=== PATIENT | male | born 1990 | race Caucasian/White ===

== ENCOUNTER 2020-06-19 17:02 | Outpatient (REF) | payer OTHER, MEDICAID, SELFPAY | END 2020-06-19 17:03 | disposition home or self-care (01) | LOC: HO.LAB 17:02 | PROVIDERS: Visit Provider Internal Medicine | DX: Z20.822 Contact with and (suspected) exposure to COVID-19 (principal) | CPT/HCPCS: 36415; C9803; U0003; U0005 ==

== ENCOUNTER 2020-12-05 11:53 | Emergency (ER) | payer MEDICAID, SELFPAY ==
[2020-12-05 12:15] VITALS: BP 121/75; PULSE 71; RESP 16; TEMP 37; O2SAT 97; BMI 41.9
--- NOTE | 2020-12-05 12:23 | ECG_ITS ---
Test Reason : HEADACHE Blood Pressure : / mmHG Vent. Rate : 069 BPM Atrial Rate : 069 BPM P-R Int : 154 ms QRS Dur : 094 ms QT Int : 384 ms P-R-T Axes : 014 015 -11 degrees QTc Int : 411 ms Normal sinus rhythm Nonspecific ST and T wave abnormality Abnormal ECG When compared to the previous EKG of No significant changes seen Referred By: Thea Cevallos Electronically Signed By:ELISHA SMITH MD
--- NOTE | 2020-12-05 12:24 | ED_ITS ---
HPI - Headache General Chief Complaint: Headache Stated Complaint: Headaches Time Seen by Provider: 12/05/20 12:23 Source: patient Mode of arrival: ambulatory History of Present Illness HPI Narrative: 30-year-old male with a past medical history of hyperlipidemia, sleep apnea presenting to the ED complaining of migraine headache x1 week with associated nausea, pressure under eyes, and lightheadedness. Admits symptoms worsen today. Also reports paresthesia feeling beneath eyes x today. Denies fever, chills, ear pain, sore throat, visual change/loss, CP/SOB, numbness, weakness, abdominal pain, recent travel MD elicited complaint: headache Related Data Previous Rx's Medication Instructions Recorded albuterol sulfate 90 mcg/actuation 2 puff INHALATION Q4-6H PRN #8.5 g 09/17/20 aerosol inhaler atorvastatin 20 mg tablet 20 mg PO DAILY #90 tab 09/17/20 prednisone 50 mg tablet 50 mg PO DAILY 5 Days #5 tab 10/18/20 tizanidine 2 mg tablet 2 mg PO BEDTIME PRN 10 Days #10 tab 10/18/20 acetaminophen [Tylenol Extra 500 mg PO Q6H PRN #20 tab 12/05/20 Strength] amoxicillin-pot clavulanate 1 tab PO Q12H 7 Days #14 tab 12/05/20 [Augmentin] ibuprofen 600 mg PO Q8H PRN #14 tab 12/05/20 Allergies Allergy/AdvReac Type Severity Reaction Status Date / Time No Known Allergies Allergy Verified 12/05/20 12:22 Review of Systems Review of Systems: Constitutional: No Fever, No Chills, No Fatigue, No Malaise ENT/Mouth: No Ear Pain, + Nasal Congestion, + Sinus Pain, No Hoarseness, No sore throat, No Rhinorrhea, No Swallowing Difficulty Eyes: No Eye Pain, No Vision Changes Cardiovascular: No Chest Pain, No SOB Respiratory: No Cough, No Dyspnea Gastrointestinal: + Nausea, No Vomiting, No Diarrhea, No Constipation, No Abdominal pain Musculoskeletal: No joint pain, No Myalgias, No Joint Swelling Skin: No Skin Lesions, No rash Neuro: No Weakness, No Numbness, + Paresthesias, No Loss of Consciousness, No Dizziness, +Lightheadedness, + Headache Yes all other systems are reviewed and are negative Neurologic: Denies Abnormal speech present [facility] Past Medical History Attestation statement: The following information was validated with the patient. Medical History (Updated 12/05/20 @ 15:39 by AZUCENA Goodson) Hyperlipidemia Sleep apnea Surgical History No pertinent past surgical history Family History Family History Father Stroke Myocardial infarction Hemiplegia Mother Arthritis Son In good health Son In good health Sister In good health Family/Other Diabetes Social History Social History Alcohol intake: never Patient Tobacco Use Status: Never used Tobacco Use of substances other than those prescribed or required for medical reasons: No Advance Directives: No Advance Directives Information Provided: Yes Physical Exam Vital Signs: Vital Signs: Last Vital Signs Temp 98.6 F 12/05/20 12:15 Pulse 63 12/05/20 14:39 Resp 18 12/05/20 14:39 BP 108/62 12/05/20 14:39 Pulse Ox 97 12/05/20 14:39 Body Mass Index 41.9 Const: General: cooperative, healthy appearing, no acute distress, well developed, alert and awake Orientation/consciousness: patient oriented x3 Limitations: no limitations HENMT: Other: Sensation intact to light touch. Nasal congestion noted on exam Head: Yes normal to inspection and Yes atraumatic Ears: hearing grossly normal bilaterally, external ears normal and TM's normal bilaterally General nose exam: Normal external nose present Face and sinus: Yes normal facial exam and Yes sinus tenderness (maxillary) Mouth: Normal oral and palatal mucosa present Throat: Yes posterior oropharynx normal, Yes tonsils normal, Yes uvula midline, No uvula laterally displaced and No uvular edema Eyes: General: appearance normal, both eyes and all related structures EOM: EOMs intact bilaterally Neck: Neck: Yes normal visual inspection, Yes no meningeal signs, Yes trachea midline and Yes supple Resp: Effort & Inspection: normal respiratory effort and no respiratory distress Cardio: Rate: regular rate GI: Inspection: Yes normal to inspection Palpation (GI): Soft to palpation, nontender, no guarding and not rigid Skin: Rashes: no rashes Wounds: no wounds Neuro: General: patient oriented x3, gait normal, tone normal, moves all extremities, no meningeal signs, no focal motor deficits and CN's II-XI intact bilaterally Cognition (Neuro): normal cognition Speech: No Abnormal speech present Gait exam (Neuro): Normal gait present Motor exam (neuro): 5/5 motor strength present throughout and Pronator motor function not present Coordination: [id number] test normal Romberg Test: Negative Extrem: General: Yes normal to inspection and Yes no pedal edema Course Course Course Narrative: This is a rapid medical evaluation in triage. This a 30-year- old male complaining migraine headache, nausea, sinus pressure, and lightheadedness x1 week. Admits to taking Tylenol today without relief, symptoms worsen today. Denies vision change/loss, CP/SOB Labs, IVF, Toradol/Reglan/Benadryl ordered in triage Full medical history/physical exam and evaluation will be performed by ED provider -[id number]--no leukocytosis, H&H stable, last otherwise unremarkable, patient reports symptomatic improvement after remedies given in the ED. -orthostatic vital signs negative Worrisome signs and symptoms and strict return precautions discussed with patient including recommended follow-up with PCP, he verbalized understanding feel safe for discharge home MDM - Headache MDM Narrative Medical decision making narrative: 30-year-old male with a past medical history of hyperlipidemia, sleep apnea presenting to the ED complaining of migraine headache x1 week with associated nausea, pressure under eyes, and lightheadedness. Also reports paresthesia feeling beneath eyes x today. On exam vital signs stable, NAD/well-appearing, physical exam as above, no focal neuro deficits. Nasal congestion noted on exam with mild sinus tenderness to palpation. Concern for sinusitis vs migraine headache vs dehydration. Low concern for meningitis/encephalitis or BPPV or CVA or CVT Plan: EKG, labs IVF, symptomatic treatment, orthostatic vital signs, reassess Medical Records Attestation: I reviewed the patient's medical records. Lab Data Attestation: I reviewed the patient's lab results. Result diagrams: 12/05/20 13:32 12/05/20 13:32 Labs: Lab Results 12/05/20 12/05/20 Range/Units 13:32 13:32 WBC 8.8 (4.8-10.8) X10*3/uL RBC 6.24 H (4.60-5.80) X10*6/uL Hgb 12.4 L (14.0-18.0) g/dl Hct 40.7 L (42-52) % MCV 65.2 L (80-98) fL MCH 19.9 L (27.0-33.0) pg MCHC 30.5 L (31.0-36.0) g/dl RDW 17.0 H (11.0-16.0) % Plt Count 266 (160-400) X10*3/uL MPV 9.4 (9.4-12.4) fL Immature Gran % (Auto) 0.1 (0.0-0.4) % Neut % (Auto) 63.4 (45-73) % Lymph % (Auto) 25.1 (20-40) % [place] % (Auto) 9.0 (2-11) % Eos % (Auto) 2.2 (0-4) % Baso % (Auto) 0.2 (0-2) % Lymph # (Auto) 2.2 (1.2-4.9) X10*3/uL [place] # (Auto) 0.8 (0.1-1.2) X10*3/uL Eos # (Auto) 0.2 (0.0-0.4) X10*3/uL Baso # (Auto) 0.0 (0.0-0.2) X10*3/uL Abs Immat Gran (auto) 0.01 (0.00-0.03) X10*3/uL Absolute Neuts (auto) 5.6 (2.0-8.3) X10*3/uL Absolute Nucleated RBC 0.000 (0.0-0.012) X10*3/uL Nucleated RBC % (auto) 0.0 (0.0-0.2) /100WBC Sodium 139 (135-145) mmol/L Potassium 4.3 (3.3-5.1) mmol/L Chloride 106 (96-108) mmol/L Carbon Dioxide 24 (22-29) mmol/L Anion Gap 13 (12-20) BUN 12 (9-16) mg/dL Creatinine 0.85 (0.5-1.4) mg/dL Estim Creat Clear Calc 152.1 Estimated GFR > 60 Random Glucose 87 (60-115) mg/dL Calcium 9.2 (8.4-10.2) mg/dL Magnesium 1.8 (1.6-2.6) mg/dL Total Bilirubin 0.5 (0.0-1.0) mg/dL Direct Bilirubin 0.2 (0.0-0.5) mg/dL AST 26 (5-37) U/L ALT 28 (0-40) U/L Alkaline Phosphatase 64 (39-117) U/L Total Protein 7.9 (6.5-8.0) g/dL Albumin 4.0 (3.5-5.0) g/dL ECG Data Attestation: I personally reviewed and interpreted this ECG as follows: ECG interpretation date: 12/05/20 ECG interpretation time: 12:46 Interpretation: EKG normal sinus rhythm with a rate of 69. Nonischemic/NSTEMI Discharge Plan Discharge Clinical Impression: Headache, Sinusitis Patient Disposition: Home, Self-Care Instructions: Sinusitis (ED), Acute Headache (ED) Additional Instructions: Your blood work was reassuring today in the ED You likely have sinusitis, Augmentin is an antibiotic, take as prescribed In addition for your headaches take Tylenol and ibuprofen Please follow-up with her primary care doctor If her symptoms persist or worsen, become unbearable, you develop fever, please return to the ED Prescriptions: New acetaminophen [Tylenol Extra Strength] 500 mg tablet 500 mg PO Q6H PRN (Reason: pain or fever) Qty: 20 RF: 0 amoxicillin-pot clavulanate [Augmentin] 875-125 mg tablet 1 tab PO Q12H 7 Days Qty: 14 RF: 0 ibuprofen 600 mg tablet 600 mg PO Q8H PRN (Reason: fever or pain) Qty: 14 RF: 0 No Action albuterol sulfate [ProAir HFA] 90 mcg/actuation HFA aerosol inhaler 2 puff inhalation Q4-6H PRN (Reason: bronchospasm) Qty: 8.5 RF: 8 atorvastatin 20 mg tablet 20 mg PO DAILY Qty: 90 RF: 8 tizanidine 2 mg tablet 2 mg PO BEDTIME PRN (Reason: muscle spasticity) 10 Days Qty: 10 RF: 0 prednisone 50 mg tablet 50 mg PO DAILY 5 Days Qty: 5 RF: 0 Referrals: Alfredo Devine MD [Primary Care Provider] - 2 days
[2020-12-05 13:17] VITALS: BP 108/61; BP 122/72; PULSE 59; PULSE 71
[2020-12-05 13:19] VITALS: BP 122/72; PULSE 68; RESP 18; O2SAT 98
[2020-12-05 13:20] VITALS: BP 129/62; PULSE 74
[2020-12-05] MEDS: Ketorolac Tromethamine 15 MG/ML VIAL IVPUSH (13:39)
[2020-12-05] MEDS: diphenhydrAMINE HCL 50 MG/ML VIAL 12.5 MG IVPUSH (13:39)
[2020-12-05] MEDS: 0.9 % Sodium Chloride 1,000 ML 999 ML IVCONT (13:40)
[2020-12-05] MEDS: Metoclopramide HCl 10 MG/2 ML VIAL IVPUSH (13:40)
[2020-12-05 13:41] LABS: MANUAL DIFF FLAG NO
[2020-12-05 13:42] LABS: Basophils Percent Auto 0.2 % (0-2); Eosinophils Absolute Auto 0.2 X10*3/uL (0.0-0.4); Eosinophils Percent Auto 2.2 % (0-4); Hematocrit 40.7 % (42-52); Hemoglobin 12.4 g/dl (14.0-18.0); Imm Gran Abs Auto 0.01 X10*3/uL (0.00-0.03); Imm Gran Pct Auto 0.1 % (0.0-0.4); Lymphocytes Absolute Auto 2.2 X10*3/uL (1.2-4.9); Lymphocytes Percent Auto 25.1 % (20-40); Mean Corpuscular HGB Conc 30.5 g/dl (31.0-36.0); Mean Corpuscular Hemoglobin 19.9 pg (27.0-33.0); Mean Corpuscular Volume 65.2 fL (80-98); Mean Platelet Volume 9.4 fL (9.4-12.4); Monocytes Absolute Auto 0.8 X10*3/uL (0.1-1.2); Neutrophils Absolute Auto 5.6 X10*3/uL (2.0-8.3); Neutrophils Percent Auto 63.4 % (45-73); Platelet Count 266 X10*3/uL (160-400); Red Blood Count 6.24 X10*6/uL (4.60-5.80); White Blood Count 8.8 X10*3/uL (4.8-10.8)
[2020-12-05 14:37] LABS: Alanine Aminotransferase 28 U/L (0-40); Alkaline Phosphatase 64 U/L (39-117); Anion Gap 13 (12-20); Aspartate Amino Transferase 26 U/L (5-37); Bilirubin Direct 0.2 mg/dL (0.0-0.5); Bilirubin Total 0.5 mg/dL (0.0-1.0); Blood Urea Nitrogen 12 mg/dL (9-16); Calcium 9.2 mg/dL (8.4-10.2); Carbon Dioxide 24 mmol/L (22-29); Chloride 106 mmol/L (96-108); Creatinine Clr Calc Pharmacy 152.1; Estimated Glomerular Filt Rate > 60; Glucose Random 87 mg/dL (60-115); Magnesium 1.8 mg/dL (1.6-2.6); Potassium 4.3 mmol/L (3.3-5.1); Sodium 139 mmol/L (135-145); Total Protein 7.9 g/dL (6.5-8.0)
[2020-12-05 14:39] VITALS: BP 108/62; PULSE 63; RESP 18; O2SAT 97
== END 2020-12-05 15:57 | disposition home or self-care (01) ==
PROVIDERS: Physician Assistant; Emergency Provider Emergency Medicine; PCP Internal Medicine
DX: J32.9 Chronic sinusitis, unspecified (principal)
CPT/HCPCS: 36415; 80048; 80076; 83735; 85025; 93005; 96361; 96374; 96375; 99284; 99285; J1200; J1885; J2765

== ENCOUNTER 2021-06-28 15:04 | Outpatient (REF) | payer MEDICAID, SELFPAY ==
--- NOTE | ~2021-06-28 | CT_ITS ---
EXAMINATION: CT HEAD WITHOUT CONTRAST CLINICAL INFORMATION: Skin paresthesias COMPARISON: None TECHNIQUE: Contiguous axial imaging was performed from the skull base to vertex without intravenous administration of contrast. This CT examination was performed using dose optimization techniques as appropriate, variously including the following: *Automated exposure control *Adjustment of mA and/or kV according to patient size (this includes techniques or standardized protocols for targeted exams where dose is matched to indication/reason for exam; i.e. extremities or head) *Use of iterative reconstruction technique DLP: 881 mGy-cm FINDINGS: There is no evidence of acute intracranial hemorrhage or territorial infarction. No abnormal mass effect or midline shift is seen. Stephenson to white matter differentiation is well preserved. No extra-axial fluid collections are identified. The ventricles are normal in size. There is no abnormal attenuation within the brain parenchyma. The osseous structures and soft tissues are normal. The mastoid air cells and visualized portions of the paranasal sinuses are well aerated. CT/CT head/brain wo con IMPRESSION: Unremarkable exam.
== END 2021-06-28 15:05 | disposition home or self-care (01) ==
LOC: HO.CT 15:04
PROVIDERS: Visit Provider Emergency Medicine
DX: R20.2 Paresthesia of skin (principal)
CPT/HCPCS: 70450

== ENCOUNTER 2021-07-18 09:16 | Outpatient (REF) | payer MEDICAID, SELFPAY ==
--- NOTE | 2021-07-18 | EMG_ITS ---
Bilateral median and ulnar motor and sensory studies were performed. Bilateral radial sensory studies were performed and paraspinal muscles were tested with a needle. IMPRESSION: Mild bilateral median neuropathy across carpal tunnel. MD CAROLYNN Ortiz/SIDDHARTH / [id number]
== END 2021-07-18 09:17 | disposition home or self-care (01) ==
LOC: HO.NEURO 09:16
PROVIDERS: Absent Provider Nurse Practitioner Primary Care; PCP Nurse Practitioner Primary Care; Visit Provider Emergency Medicine
DX: R20.2 Paresthesia of skin (principal)
CPT/HCPCS: 95886; 95911

== ENCOUNTER → 2021-08-20 12:41 | Outpatient (BNVA) | payer MEDICAID, SELFPAY | PROVIDERS: PCP Nurse Practitioner Primary Care; Visit Provider Orthopaedic Surgery | DX: G56.03 Carpal tunnel syndrome, bilateral upper limbs (principal) | CPT/HCPCS: 99202 ==

== ENCOUNTER 2021-09-05 09:52 | Day surgery (SDC) | payer MEDICAID, SELFPAY ==
[2021-09-05 10:28] VITALS: BP 148/80; PULSE 65; RESP 16; TEMP 36.6; O2SAT 97
--- NOTE | 2021-09-05 10:29 | W.PM.OPN ---
Operative Note Operative Note Date of Service: 09/05/21 Narrative: Preop diagnosis: 1. left Carpal tunnel syndrome Postop diagnosis: same Procedure: 1. left Carpal tunnel release Surgeon: Gela Siu MD Anesthesia: local block using 1% lidocaine with epinephrine Findings: Thickened transverse carpal ligament. EBL: Less than 5 mL Specimens: None Complications: None Disposition: Brought to recovery room in stable condition Plan: Follow-up for 10-14 days for wound check and suture removal Indications: The patient is 31 years old, with left carpal tunnel syndrome that has been unresponsive to nonoperative management. The risks and benefits of operative treatment including but not limited to risk of damage to blood vessels, nerves, tendons, infection, persistent pain, persistent symptoms, or possible need for additional surgery were discussed with the patient and the patient wishes to proceed with surgery. Procedure: Once consent was obtained a local block was performed using a combination of 1% lidocaine with epinephrine. The patient was then brought back to the operating suite and placed on the operative table in supine position. A tourniquet was applied to the proximal aspect of the left upper extremity and the limb was prepped and draped in a standard surgical fashion. Once assured that we had a good block, a 1.5 cm longitudinal incision was made centered over the carpal tunnel. The incision was made through the skin to the subcutaneous tissues using a #15 blade. Dissection was made down to the level of the transverse carpal ligament with care being taken to protect the palmar cutaneous nerve. Once the transverse carpal ligament was clearly visualized, a longitudinal incision was made in the transverse carpal ligament 1st using a #15 blade, then using tenotomy scissors under direct visualization. Care was taken to look for and protect the motor branch of the median nerve when seen in this area. Once satisfied with our carpal tunnel release the wound was copiously irrigated with normal saline and hemostasis was obtained with a brief period of local pressure. The skin edges were reapproximated with some 5.0 nylon suture material and a sterile dressing was applied. The patient appears to have tolerated the procedure well and with no complications. All digits were well vascularized at the conclusion of the case.
[2021-09-05 10:30] VITALS: BMI 44.6
--- NOTE | 2021-09-05 13:39 | MHC.SHP ---
Pre-Procedural Eval Section A Date of Service: 09/05/21 The patient is an INPATIENT: No Changes since office visit: No Cold of Flu in the past 2 weeks, No New Medical Problems, No Changes in Medication and No Patient answered all questions The History & Physical has been completed within 30 days and I have reviewed it.: Yes Section B Chief Complaint: carpal tunnel Allergies: Allergies Allergy/AdvReac Type Severity Reaction Status Date / Time No Known Allergies Allergy Verified 09/05/21 10:28 Plan I have reviewed the history and physical and performed a pertinent physical examination on my patient. No changes have occurred unless specified.
[2021-09-05 14:18] VITALS: PULSE 73; RESP 16; TEMP 36.8; O2SAT 99
== END 2021-09-05 15:09 | disposition home or self-care (01) ==
PROVIDERS: PCP Nurse Practitioner Primary Care; Visit Provider Orthopaedic Surgery
PROC: (CPT 64721; principal; 2021-09-05 12:50)
DX: G56.02 Carpal tunnel syndrome, left upper limb (principal); R20.0 Anesthesia of skin; M25.642 Stiffness of left hand, not elsewhere classified; M25.641 Stiffness of right hand, not elsewhere classified; E78.5 Hyperlipidemia, unspecified; G47.30 Sleep apnea, unspecified
CPT/HCPCS: 64721; J0171

== ENCOUNTER → 2021-09-18 12:39 | Outpatient (BNVA) | payer MEDICAID, SELFPAY | PROVIDERS: PCP Nurse Practitioner Primary Care; Visit Provider Orthopaedic Surgery | DX: Z48.811 Encounter for surgical aftercare following surgery on the nervous system (principal); G56.01 Carpal tunnel syndrome, right upper limb | CPT/HCPCS: 99212 ==

== ENCOUNTER 2023-02-04 | Outpatient (REF) | payer MEDICAID, SELFPAY ==
[2023-02-05 15:51] LABS: Influenza A PCR NEGATIVE (Negative); Influenza B PCR NEGATIVE (Negative); Resp Syncy Virus RNA Qual PCR NEGATIVE (Negative); SARS COV2 PCR INHOUSE NEGATIVE (Negative)
== END 2023-02-04 00:01 | disposition home or self-care (01) ==
LOC: HO.HHCLNP
PROVIDERS: Registered Nurse; Visit Provider Emergency Medicine
DX: Z20.822 Contact with and (suspected) exposure to COVID-19 (principal); J01.90 Acute sinusitis, unspecified
CPT/HCPCS: 0241U

== ENCOUNTER 2023-02-10 14:47 | Outpatient (AMB) | payer MEDICAID, SELFPAY ==
--- NOTE | 2023-02-10 15:04 | MHC.OFFVIS ---
Intake Vital Signs 02/10/23 16:04 Height 5 ft 4 in Weight 260 lb BMI 44.6 Intake Visit Reasons: OV- RT CTS Intake Note: Thomas 32 yr old male presents today for his Right hand CTS. States he is ready to have his right hand done. Hx of left hand CTR from 09/05/22. Consent signed and reviewed. Allergies No Known Allergies Allergy (Verified 02/10/23 16:03) HPI OV- RT CTS HPI Details Thomas is a 32 year old right hand dominant man who presents to discuss his right carpal tunnel syndrome. He complains of numbness in the median nerve distribution of his right hand. Symptoms intermittent, but daily, worse at night. He has a hx of Left carpal tunnel release, DOS: 09/05/21. He says his sensation in his left hand is improved and he is happy with this. 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 Normal sensation in the ulnar nerve distribution today in clinic No thenar or intrinsic wasting Good APB muscle belly firing and good finger cross Vascular: Cap refill brisk ROM: He can make a fist and extend all his digits Nerve Conduction Study: IMPRESSION: Mild bilateral median neuropathy across carpal tunnel. Nettie Perez MD 07/18/2021 Psych Appearance: grossly normal Affect: normal affect Attitude: cooperative Assessment & Plan Assessment & Plan (1) Carpal tunnel syndrome of left wrist: Code(s): G56.02 - Carpal tunnel syndrome, left upper limb (2) Carpal tunnel syndrome of right wrist: Code(s): G56.01 - Carpal tunnel syndrome, right upper limb (3) Numbness and tingling in right hand: Code(s): R20.0 - Anesthesia of skin; R20.2 - Paresthesia of skin Plan Assessment and plan: 1. Right carpal tunnel syndrome, mild With numbness in the median nerve distribution today in clinic. I educated him about this condition I discussed operative and non-operative treatment options The patient would like to proceed with surgery The risks and benefits of operative treatment were discussed with the patient and the patient wishes to proceed with surgery. These risks include, but are not limited to risk of damage to blood vessels, nerves, tendons, infection, recurrence, incomplete relief of preoperative symptoms, persistent pain, possible need for further surgery and the risks associated with regional blocks and anesthesia. The plan is to take the patient to the operating room sometime in the next few weeks for the following procedures: 1. Right carpal tunnel release, under local All of the preoperative paperwork including the consent was filled out today. All the patient's questions were answered. The patient understands that they will be contacted by our store receiver soon to schedule this procedure He denies Diabetes, blood thinners, asthma, heart, lung, kidney issues He says he is pre-diabetic but is not on any medication 2. Right hand numbness In the small finger Symptoms intermittent and occasional No evidence of cubital tunnel syndrome on his previous NCS If his symptoms persist or worsen we may consider ordering a new NCS 3. Left carpal tunnel syndrome, mild, S/P release DOS: 09/05/21 With normal sensation postop Scribed for Gela Siu MD by Chester José, medical billing representative, on 02/10/23 at 4:20 PM, EST. Coding Level of Care Code Est Pt Level 4 (66180) Diagnoses Carpal tunnel syndrome of left wrist G56.02 Carpal tunnel syndrome of right wrist G56.01 Numbness and tingling in right hand R20.0; R20.2
[2023-02-10 16:04] VITALS: BMI 44.6
== END 2023-02-10 16:27 | disposition home or self-care (01) ==
PROVIDERS: PCP Nurse Practitioner Primary Care; Visit Provider Orthopaedic Surgery
DX: G56.02 Carpal tunnel syndrome, left upper limb (principal); G56.01 Carpal tunnel syndrome, right upper limb; R20.0 Anesthesia of skin; R20.2 Paresthesia of skin
CPT/HCPCS: 99214

== ENCOUNTER → 2023-02-10 14:47 | Outpatient (BNVA) | payer MEDICAID, SELFPAY | PROVIDERS: PCP Nurse Practitioner Primary Care; Visit Provider Orthopaedic Surgery | DX: G56.01 Carpal tunnel syndrome, right upper limb (principal); R20.0 Anesthesia of skin; R20.2 Paresthesia of skin | CPT/HCPCS: 99212 ==

== ENCOUNTER 2023-04-02 14:30 | Outpatient (AMB) | payer MEDICAID, SELFPAY ==
--- NOTE | 2023-04-02 14:40 | MHC.OFFVIS ---
Intake Vital Signs 04/02/23 14:41 Height 5 ft 4 in Weight 277 lb BMI 47.5 BP 118/74 Blood Pressure Location Rt brachial Position Sitting Intake Visit Reasons: [id number] box full Intake Note: Patient presents for FABIÁN. Patient states I have sleep apnea, I have a machine. Allergies No Known Allergies Allergy (Verified 04/02/23 14:44) HPI HPI Comments History of Present Illness Details 32 y/o male patient presents for new in-person visit to manage sleep apnea. Pt reports he was diagnosed with severe degree of FABIÁN about 7 years ago. The AHI was 150/hr. and have been using the CPAP. His home care company is [employer]. Pt states that his insurance changed and need new prescription for supplies. His CPAP works well now. He reports he feels good, wakes up refreshed when he uses CPAP. Daytimes sleepiness has improved. Sleep hygiene questionnaire: What is your usual sleep routine? Usual bedtime is at 10-11 pm ; Usual wake up time is at 4 am. Do you take naps? Yes, sometimes. Is your sleep environment cool, dark, and quiet? Yes. Do you exercise? No. Do you take caffeine or other stimulants? Coffee in the morning. Do you use electronics in bed? Yes. What is your work schedule? 6 am- 2 pm Have you ever had episodes of sudden weakness associated with strong emotions? No. 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 Review of Systems Const All systems reviewed & are unremarkable except as noted in HPI and below ENT Reports Normal hearing present Neuro Reports Normal hearing present Physical Exam Vital Signs: Last Vital Signs BP 118/74 04/02/23 14:41 BMI result Body Mass Index 47.5 Const General: cooperative Nutritional Appearance: obese Orientation/consciousness: patient oriented x3 Neck Neck: Yes full ROM and Yes supple Resp Effort & Inspection: normal respiratory effort and able to speak in complete sentences Neuro General: patient oriented x3, gait normal and moves all extremities Cranial nerves: Yes Bilaterally intact EOM present, Yes Normal facial strength present, Yes Midline tongue present, Yes Symmetric palate elevation present, Yes Normal hearing present and Yes Ability to bilaterally rotate head present Cognition (Neuro): normal cognition Gait exam (Neuro): Normal gait present Motor exam (neuro): 5/5 motor strength present throughout, Pronator motor function not present and no tremor noted Psych Appearance: grossly normal Mental Status: mental status grossly normal Speech and movement: Normal speech and movement present Assessment & Plan Assessment & Plan (1) FABIÁN on CPAP: Code(s): G47.33 - Obstructive sleep apnea (adult) (pediatric) Plan Request CPAP compliance and therapy response from [facility]. New CPAP supply prescription sent to [facility]. Advised patient to use CPAP nightly and more than 4 hrs as patient experiences good clinical effects. Wt reduction advised. Coding Level of Care Code New Pt Level 3 (17446) Diagnoses FABIÁN on CPAP G47.33
[2023-04-02 14:41] VITALS: BP 118/74; BMI 47.5
== END 2023-04-02 15:04 | disposition home or self-care (01) ==
PROVIDERS: PCP Nurse Practitioner Primary Care; Visit Provider Nurse Practitioner Family
DX: G47.33 Obstructive sleep apnea (adult) (pediatric) (principal)
CPT/HCPCS: 99203

== ENCOUNTER → 2023-04-02 14:30 | Outpatient (BNVA) | payer MEDICAID, SELFPAY | PROVIDERS: PCP Nurse Practitioner Primary Care; Visit Provider Nurse Practitioner Family | DX: G47.33 Obstructive sleep apnea (adult) (pediatric) (principal) | CPT/HCPCS: 99212 ==

== ENCOUNTER 2023-06-22 11:34 | Day surgery (SDC) | payer MEDICAID, SELFPAY ==
[2023-06-22 12:22] VITALS: BMI 51.4
--- NOTE | 2023-06-22 15:17 | MHC.SHP ---
Pre-Procedural Eval Section A - 24 Hr Update-Section A only Date of Service: 06/22/23 The patient is an INPATIENT: No Changes since office visit: No Cold of Flu in the past 2 weeks, No New Medical Problems, No Changes in Medication and No Patient answered all questions The patient has been examined within 24 hours of the surgical procedure. The History & Physical has been completed within 30 days and I have reviewed it.: Yes Section B - Complete if H&P > 30 days Chief Complaint: Carpal tunnel syndrome, right upper limb Allergies: Allergies Allergy/AdvReac Type Severity Reaction Status Date / Time No Known Allergies Allergy Verified 06/22/23 12:23 Plan I have reviewed the history and physical and performed a pertinent physical examination on my patient. No changes have occurred unless specified. Time Spent With Patient Time: Total time managing care of this patient today ____ minutes.
--- NOTE | 2023-06-22 15:17 | W.PM.OPN ---
Operative Note Operative Note Date of Service: 06/22/23 Narrative: Preop diagnosis: 1. Right Carpal tunnel syndrome Postop diagnosis: same Procedure: 1. Right Carpal tunnel release Surgeon: Gela Siu MD Anesthesia: local block using 1% lidocaine with epinephrine Findings: Thickened transverse carpal ligament. EBL: Less than 5 mL Specimens: None Complications: None Disposition: Brought to recovery room in stable condition Plan: Follow-up for 10-14 days for wound check and suture removal Indications: The patient is 33 years old, with right carpal tunnel syndrome that has been unresponsive to nonoperative management. The risks and benefits of operative treatment including but not limited to risk of damage to blood vessels, nerves, tendons, infection, persistent pain, persistent symptoms, or possible need for additional surgery were discussed with the patient and the patient wishes to proceed with surgery. Procedure: Once consent was obtained a local block was performed using a combination of 1% lidocaine with epinephrine. The patient was then brought back to the operating suite and placed on the operative table in supine position. The right upper extremity was prepped and draped in a standard surgical fashion. Once assured that we had a good block, a 2.0 cm longitudinal incision was made centered over the carpal tunnel. The incision was made through the skin to the subcutaneous tissues using a #15 blade. Dissection was made down to the level of the transverse carpal ligament with care being taken to protect the palmar cutaneous nerve. Once the transverse carpal ligament was clearly visualized, a longitudinal incision was made in the transverse carpal ligament 1st using a #15 blade, then using tenotomy scissors under direct visualization. Care was taken to look for and protect the motor branch of the median nerve when seen in this area. Once satisfied with our carpal tunnel release the wound was copiously irrigated with normal saline and hemostasis was obtained with a brief period of local pressure. The skin edges were reapproximated with some 5.0 nylon suture material and a sterile dressing was applied. The patient appears to have tolerated the procedure well and with no complications. All digits were well vascularized at the conclusion of the case.
[2023-06-22 16:00] VITALS: BP 144/72; PULSE 86; RESP 18; TEMP 36.4; O2SAT 98
== END 2023-06-22 16:21 | disposition home or self-care (01) ==
PROVIDERS: PCP Nurse Practitioner Primary Care; Visit Provider Orthopaedic Surgery
PROC: (CPT 64721; principal; 2023-06-22 14:00)
DX: G56.01 Carpal tunnel syndrome, right upper limb (principal); R20.0 Anesthesia of skin; R20.2 Paresthesia of skin; E78.5 Hyperlipidemia, unspecified; G47.30 Sleep apnea, unspecified; Z79.899 Other long term (current) drug therapy
CPT/HCPCS: 64721; J0171

== ENCOUNTER → 2023-06-22 11:34 | Outpatient (BNV) | payer MEDICAID, SELFPAY | PROVIDERS: PCP Nurse Practitioner Primary Care; Visit Provider Orthopaedic Surgery | DX: G56.01 Carpal tunnel syndrome, right upper limb (principal) | CPT/HCPCS: 64721 ==

== ENCOUNTER 2023-07-08 14:27 | Outpatient (AMB) | payer MEDICAID, SELFPAY ==
[2023-07-08 14:42] VITALS: BMI 51.4
--- NOTE | 2023-07-08 14:42 | MHC.OFFVIS ---
Intake Vital Signs 07/08/23 14:42 Height 5 ft 3 in Weight 290 lb BMI 51.4 Intake Visit Reasons: PO-Rt CTR 05/14/23 Intake Note: Thomas 33 yr old male presents today for his P/O visit for his right hand CTR from 05/14/23. States his CTS has improved and is doing well. States he has no pain. Sutures removed and steri strips applied. Allergies No Known Allergies Allergy (Verified 07/08/23 14:50) HPI PO-Rt CTR 05/14/23 HPI Details Thomas is a 33 year old right hand dominant man who presents S/P right carpal tunnel release, DOS: 06/22/23. He says he is doing well, denies any pain, and says his sensation is now normal. 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 Sutures removed and Steri-Strips applied He can make a fist and extend all his digits Sensation is intact and normal to the tips of all digits Cap refill is brisk Nerve Conduction Study: IMPRESSION: Mild bilateral median neuropathy across carpal tunnel. Nettie Perez MD 07/18/2021 Psych Appearance: grossly normal Affect: normal affect Attitude: cooperative Assessment & Plan Assessment & Plan (1) Carpal tunnel syndrome of left wrist: Code(s): G56.02 - Carpal tunnel syndrome, left upper limb (2) Carpal tunnel syndrome of right wrist: Code(s): G56.01 - Carpal tunnel syndrome, right upper limb (3) Numbness and tingling in right hand: Code(s): R20.0 - Anesthesia of skin; R20.2 - Paresthesia of skin Plan Assessment and plan: 1. Right carpal tunnel syndrome,S/P release DOS: 06/22/23 Pre-operatively with numbness in the median nerve distribution today in clinic. Now with normal sensation The patient appears to be doing well post-operatively I educated him about the post-operative course I explained the signs and symptoms of infection. I discussed activity modifications, he is to lift nothing heavier than a cellphone for the next two weeks He will perform gentle ROM exercises at home He should avoid any underwater activities for the next 5 days He should gently massage about the incision site to reduce the risk of hypersensitivity He was given a note for work to continue light duty with a 2lb weight limit for two weeks. He can return to full duty in 2 weeks time. He can follow up prn 2. Right hand numbness In the small finger Symptoms intermittent and occasional No evidence of cubital tunnel syndrome on his previous NCS If his symptoms persist or worsen we may consider ordering a new NCS 3. Left carpal tunnel syndrome, mild, S/P release DOS: 09/05/21 With normal sensation postop Scribed for Gela Siu MD by Chester José, medical chief technician, on 07/08/23 at 3:05 PM, EST. Coding Level of Care Code Global (73076) Diagnoses Carpal tunnel syndrome of left wrist G56.02 Carpal tunnel syndrome of right wrist G56.01 Numbness and tingling in right hand R20.0; R20.2
== END 2023-07-08 15:26 | disposition home or self-care (01) ==
PROVIDERS: PCP Nurse Practitioner Primary Care; Visit Provider Orthopaedic Surgery
DX: G56.03 Carpal tunnel syndrome, bilateral upper limbs (principal); R20.0 Anesthesia of skin; R20.2 Paresthesia of skin
CPT/HCPCS: 99024

== ENCOUNTER → 2023-07-08 14:27 | Outpatient (BNVA) | payer MEDICAID, SELFPAY | PROVIDERS: PCP Nurse Practitioner Primary Care; Visit Provider Orthopaedic Surgery | DX: Z48.811 Encounter for surgical aftercare following surgery on the nervous system (principal); G56.02 Carpal tunnel syndrome, left upper limb; R20.0 Anesthesia of skin; R20.2 Paresthesia of skin; Z86.69 Personal history of other diseases of the nervous system and sense organs | CPT/HCPCS: 99212 ==

== ENCOUNTER 2023-08-22 08:03 | Outpatient (REF) | payer MEDICAID, SELFPAY ==
[2023-08-22 09:44] LABS: Estimated Average Glucose 131 mg/dL; Hemoglobin A1c % 6.2 % (<6.0)
[2023-08-22 10:07] LABS: Cholesterol 161 mg/dL (<200); HDL Cholesterol 30 mg/dL (>40); LDL Cholesterol Calculated 114 mg/dL (<100); Triglycerides 88 mg/dL (<150)
== END 2023-08-22 08:04 | disposition home or self-care (01) ==
LOC: HO.LAB 08:03
PROVIDERS: PCP Nurse Practitioner Primary Care; Visit Provider Nurse Practitioner Primary Care
DX: R73.03 Prediabetes (principal); E78.00 Pure hypercholesterolemia, unspecified
CPT/HCPCS: 36415; 80061; 83036

== ENCOUNTER 2023-09-09 15:39 | Outpatient (AMB) | payer MEDICAID, SELFPAY ==
--- NOTE | 2023-09-09 15:41 | MHC.OFFVIS ---
Vital Signs 09/09/23 15:54 Height 5 ft 3 in Weight 287 lb BMI 50.8 BP 132/80 Blood Pressure Location Lt brachial Position Sitting Pulse 74 Pulse Source Pulse Oximeter Pulse Oximetry (%) 97 Oxygen Delivery Method Room Air Intake Visit Reasons: 6 mo f/u - FABIÁN Intake Note: Patient presents for 6 months f/u. Stop breathing while sleeping on the CPAP machine. Maybe needs more air. Allergies No Known Allergies Allergy (Verified 09/09/23 15:53) HPI Comments Details: 33 y/o male patient presents for follow up of FABIÁN on CPAP. The CPAP compliance and therapy response (06/11/23-) reviewed. He is on APAP at 6-33pzG2M. The usage days 100% and the average usage hours 6 hrs. The max pressure was 15.8 and the residual AHI was 5.6/hr. He was diagnosed with severe degree of FABIÁN about 7 years ago. The AHI was 150/hr. He reports he feels good, wakes up refreshed when he uses CPAP. Daytimes sleepiness has improved. 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 Review of Systems Const All systems reviewed & are unremarkable except as noted in HPI and below ENT Reports Normal hearing present Neuro Reports Normal hearing present Physical Exam Vital Signs: Last Vital Signs Pulse 74 09/09/23 15:54 BP 132/80 09/09/23 15:54 Pulse Ox 97 09/09/23 15:54 Oxygen Delivery Method Room Air 09/09/23 15:54 BMI result Body Mass Index 50.8 Const General: cooperative Nutritional Appearance: obese Orientation/consciousness: patient oriented x3 Neck Neck: Yes full ROM and Yes supple Resp Effort & Inspection: normal respiratory effort and able to speak in complete sentences Neuro General: patient oriented x3, gait normal and moves all extremities Cranial nerves: Yes Bilaterally intact EOM present, Yes Normal facial strength present, Yes Midline tongue present, Yes Symmetric palate elevation present, Yes Normal hearing present and Yes Ability to bilaterally rotate head present Cognition (Neuro): normal cognition Gait exam (Neuro): Normal gait present Motor exam (neuro): 5/5 motor strength present throughout, Pronator motor function not present and no tremor noted Psych Appearance: grossly normal Mental Status: mental status grossly normal Speech and movement: Normal speech and movement present Assessment & Plan Assessment & Plan (1) FABIÁN on CPAP: Code(s): G47.33 - Obstructive sleep apnea (adult) (pediatric) Category: Medical Plan Continue to use APAP at 6-65toD3C as patient experiences good clinical effects, sleep quality and daytime sleepiness has improved. Stressed compliance, use CPAP nightly and more than 4 hrs. Wt reduction advised. Coding Level of Care Code Est Pt Level 3 (72110) Diagnoses FABIÁN on CPAP G47.33
[2023-09-09 15:54] VITALS: BP 132/80; PULSE 74; O2SAT 97; BMI 50.8
== END 2023-09-09 16:09 | disposition home or self-care (01) ==
PROVIDERS: PCP Nurse Practitioner Primary Care; Visit Provider Nurse Practitioner Family
DX: G47.33 Obstructive sleep apnea (adult) (pediatric) (principal)
CPT/HCPCS: 99213

== ENCOUNTER → 2023-09-09 15:39 | Outpatient (BNVA) | payer MEDICAID, SELFPAY | PROVIDERS: PCP Nurse Practitioner Primary Care; Visit Provider Nurse Practitioner Family | DX: G47.33 Obstructive sleep apnea (adult) (pediatric) (principal) | CPT/HCPCS: 99212 ==

== ENCOUNTER 2024-06-25 08:23 | Outpatient (REF) | payer MEDICAID, SELFPAY ==
--- OUTSIDE RECORDS SUMMARY | 2024-06-25 08:26 | XMS_ITS | Encounter Summary ---
Author Organization [employer] Address [address] [facility] [address] [place] [address] Care Team Providers Care Malt House Supervisor Name Role Phone Gladys Lita MACDONALD Primary Care Provider [phone] Reason for Visit * Reason Comments Filling #31 Encounter Details Date Type Department Care Team ([facility] Contact Info) Description 06/02/2024 2:30 PM EST Office Visit [facility] ADULT DENTAL [address] [place] [address] Micki Avileznallely [address] [place] [address] Social History Tobacco Use Types Packs/Day Years Used Date Smoking Tobacco: Former Cigarettes Passive Smoke Exposure: Never Smokeless Tobacco: Never Alcohol Use Standard Drinks/Week Comments Never 0 (1 standard drink = 0.6 oz pur e alcohol) Housing Stability Answer Date Recorded What is your housing situation today? I have jonas reyes 03/16/[address] you li ve. Do you have problems with any of the following? None of the above 03/16/2023 Food Insecurity Answer Date Recorded Within the past 12 months, y ou worried that your food would run out before you got money to buy more: Never True 03/16/2023 Within the past 12 months,th e food you bought just didn't last and you didn't have enough money to get more: Never True Transportation Answer Date Recorded In the past 12 months, has l ack of transportation kept you from medical appts, meetings, work or from getting things needed for daily living? No 03/16/2023 Utilities Answer Date Recorded In the past 12 months, has t he electric, gas, oil or water company threatened to shut off services in your home? No 03/16/2023 Depression Answer Date Recorded Patient Health Questionnaire-2 Score 0 09/24/2022 Internet Access Answer Date Recorded Internet Access Q1 Yes 01/18/2024 Internet Access Q2 Not on file 01/18/2024 Sex and Gender Information Value Date Recorded Sex Assigned at Male 03/17/2022 10:37 AM EDT Legal Sex Male 10:37 AM EDT Gender Identity Male 03/17/2022 10:37 AM EDT Sexual Orientation Straight 05/12/2024 12 :58 PM EST documented as of this encounter Last Filed Vital Signs Vital Sign Reading Time Taken Comments Blood Pressure 130/82 06/02/2024 2:43 PM EST Pulse 70 06/02/2024 2:43 PM EST Temperature - - Respiratory Rate - - Oxygen Saturation - - Inhaled Oxygen Concentration - - Weight - - Height - - Body Mass Index - - documented in this encounter Progress Notes * Chad Avilez - 06/02/2024 2:30 PM EST Patient ID: Thomas Monroe is a 34 y.o. male. Time Out: Timeout Date: 06/02/24, Timeout Time: 0000 (filling # 31) Location: [facility] Tooth: #30 Procedure: Protestant Verified the above with patient, pharmaceutical assistant, and provider. Confirmed via patient's chart, intraorally and by radiographs. Polarity Tester: not applicable Chief Complaint Patient presents with Filling #31 Medical Hx: Vitals: Blood pressure 130/82, pulse 70. Medications, Med Hx reviewed with patient and updated in chart. Consent Obtained: The risks, benefits, indications, potential complications, and alternatives were explained to the patient and informed consent was obtained with good understanding. Treatment Provided: Dental procedures in this visit [id number] - RESTORATIVE - RESIN-BASED COMPOSITE RESTORATIONS - DIRECT - RESIN-BASED COMPOSITE - THREE SURFACES, POSTERIOR 30 MOL (Completed) Service provider: Chad Avilez Billing provider: Chad Avilez Diagnosis: fractured cusp Temporary adventism was placed on 05/23/24 as pt complained of pain in #30 due to food lodgment. Tooth #30 was asymptomatic today, so replaced with permanent adventism. Today- Percussion -ve, palpation negative, endo ice test - normal response. Topical: 20% Benzocaine Anesthesia: 4% Septocaine (Articaine) w/ 1:200,000 epinephrine Number of Cartridges: 1 Injection Type: Buccal infiltration and Palatal infiltration Confirmed profound anesthesia. Isolation: high speed suction and cotton rolls and bite block Prep: All caries removed and Preparation finalized Matrix: None Etch: 37% Phosphoric Acid Etch Desensitizer: Gluma Liner/Base: LimeLite Oconnor: I-Oconnor Protestant Material: Voco Grandioso Packable Shade: A3 Polished. Occlusion & contacts verified. Patient satisfied with comfort and esthetics. Patient tolerated procedure well. Post-operative instructions were given. Patient departed alert, oriented, and in stable condition. NOTE - Pt was informed that if tooth becomes symptomatic , pt might need RCT/post/core/crown/extraction as needed. NV: 6 month recall Tire Changer Aircraft: Elma Lopez Dentist: Dr. Chad Avilez, DMD documented in this encounter Plan of Treatment Upcoming Encounters Date Type Department Care Team (Late st Contact Info) Description 07/11/2024 3:00 PM EST Office Visit [facility] ADULT DENTAL [address] [place] [address] Kiki Harris 08/10/2024 3:15 PM EDT Office Visit [facility] MEDICINE [address] [place] [address] Lita Graham ANP [address] [place] [address] documented as of this encounter Procedures Procedure Name Priority Date/Time Associated Diagnosis Comments 30 MOL RESTORATIVE - RESIN-BASED COMPOSITE RESTORATIONS - DIRECT - RESIN-BASED COMPOSITE - THREE SURFACES, POSTERIOR Routine 06/02/2024 2:30 PM EST documented in this encounter Visit Diagnoses Not on filedocumented in this encounter Care Teams Malt House Supervisor Relationship Specialty Start Date End Date Lita Graham ANP [address] [place] [address] PCP - General Family Medicine 06/27/21 documented as of this encounter
--- OUTSIDE RECORDS SUMMARY | 2024-06-25 08:26 | XMS_ITS | Encounter Summary ---
Author Organization [employer] Address [address] [place] [address] Care Team Providers Care Composition Stone Applicator Name Role Phone Lita Graham Primary Care Provider [phone] Reason for Visit * Reason Comments sick on site Encounter Details Date Type Department Care Team (Latest Contact Info) Description 06/15/2024 3:45 PM EST Office Visit [facility] MEDICINE [address], [place] [phone] Lita Graham ANP [address] [place], [place] [phone] Hypercholesterolemia (Primary Dx); Obstructive sleep apnea syndrome; Prediabetes; Dizziness Social History Tobacco Use Types Packs/Day Years Used Date Smoking Tobacco: Former Cigarettes Passive Smoke Exposure: Never Smokeless Tobacco: Never Tobacco Cessation:Counseling Given: Not Answered Alcohol Use Standard Drinks/Week Comments Never 0 (1 standard drink = 0.6 oz pur e alcohol) Depression Answer Date Recorded Patient Health Questionnaire-9 Score 4 06/15/2024 Patient Health Questionnaire-9 Score 4 06/15/2024 Last PHQ-9: Questionnaire Data Not on file 0 06/15/2024 Housing Stability Answer Date Recorded What is your housing situation today? I have jonas reyes 03/16/[address] you li ve. Do you have problems with any of the following? None of the above 03/16/2023 Food Insecurity Answer Date Recorded Within the past 12 months, y ou worried that your food would run out before you got money to buy more: Sometimes True 2024 Within the past 12 months,th e food you bought just didn't last and you didn't have enough money to get more: Sometimes True 06/07/2024 Transportation Answer Date Recorded In the past [...] Answer Date Recorded Patient Health Questionnaire-2 Score 2 06/15/2024 Internet Access Answer Date Recorded Internet Access [...] Sign Reading Time Taken Comments Blood Pressure 124/86 06/15/2024 4:38 PM EST Pulse 76 06/15/2024 4:38 PM EST Temperature 36.6 ??C (97.9 ??F) 06/15/2024 3:57 PM ES T Respiratory Rate 16 06/15/2024 3:57 PM EST Oxygen Saturation 98% 06/15/2024 3:57 PM EST Inhaled Oxygen Concentration - - Weight 132 kg (291 lb 6.4 oz) 06/15/2024 3:57 PM EST Height - - Body Mass Index 51.62 08/14/2023 2:57 PM EDT documented in this encounter Progress Notes * TORRES Cunningham - 06/15/2024 3:45 PM EST Subjective Patient ID: Thomas Monroe is a 34 y.o. male who presents for sick on site. HPI PMH preDM, former smoker, FABIÁN on CPAP Lab Results Component Value Date HGBA1C 6.5 (A) 06/15/2024 HGBA1C 6.2 (H) 08/22/2023 HGBA1C 5.8 (H) 10/14/2022 Here today for ER follow-up after visit for dizziness/Dx peripheral vertigo at [facility] 06/09/2024. Workup there was reassuring -no imaging was done but neuro exam and electrolytes and H&H were normal. Patient was prescribed meclizine which was helpful at the emergency room but per triage note appears to not be helping anymore. Dizziness is worse with head movement. He does report that sensation isnot really room-spinning but more like lightheadedness and feels like he is going to pass out. It was most severe the day he went to the emergency room and since then has happened a little but not much and does think that the meclizine helped. He tells me that at the time of the episode his coworker checked his blood sugar and it was 144. 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 HENT: Negative for sore throat. Respiratory: Negative for cough, chest tightness, shortness of breath and wheezing. Cardiovascular: Negative for chest pain and palpitations. Gastrointestinal: Negative for constipation and diarrhea. Endocrine: Negative for polydipsia, polyphagia and polyuria. Genitourinary: Negative for decreased urine volume and dysuria. Neurological: Positive for dizziness and light-headedness. Negative for weakness. Psychiatric/Behavioral: The patient is not nervous/anxious. Objective BP 124/86 (BP Location: Right arm, Patient Position: Standing, BP Cuff Size: Large adult) Pulse 76 Temp 97.9 ??F (36.6 ??C) (Temporal) Resp 16 Wt 291 lb 6.4 oz (132 kg) SpO2 98% BMI 51.62 kg/m?? Physical Exam Constitutional: General: He is not in acute distress. Appearance: Normal appearance. He is obese. He is not ill-appearing. HENT: Head: Normocephalic and atraumatic. Eyes: General: No scleral icterus. Extraocular Movements: Extraocular movements intact. Pupils: Pupils are equal, round, and reactive to light. Cardiovascular: Rate and Rhythm: Normal rate and regular rhythm. Pulmonary: Effort: Pulmonary effort is normal. No accessory muscle usage or respiratory distress. Breath sounds: Normal breath sounds. No wheezing or rhonchi. Neurological: General: No focal deficit present. Mental Status: He is alert and oriented to person, place, and time. Cranial Nerves: No cranial nerve deficit. Coordination: Coordination normal. Gait: Gait normal. Psychiatric: Mood and Affect: Mood normal. Behavior: Behavior normal. Assessment/Plan Diagnoses and all orders for this visit: Hypercholesterolemia Lifestyle recommendations to improve heart health & lower cholesterol: be as active as able, ideally exercise 150min moderate intensity or 75min vigorous intensity weekly; increase intake of vegetables, fruits, whole grains, fish. Try to minimize intake of sugary or greasy food and drink. Use olive oil or vegetable, peanut, canola, or similar oil for cooking. Decrease or stop drinking alcoholif you drink, quit/decrease smoking if you smoke. - Lipid Panel, Standard; Future Obstructive sleep apnea syndrome Continue to use CPAP Continues to benefit from CPAP use Prediabetes A1c today 6.5% Right at line of pre-DM versus DM. Will check A1c via lab draw for better accuracy. Recommend metformin versus GLP-1 pending A1c. If A1c remains at PreDM level would recommend GLP-1 for multitude of benefits and if A1c is at DM level will recommend metformin start. discussion with patient today about importance of exercise and healthy nutrition. Recommend: Daily exercise at least 30min, moderate intensity, incorporating both cardiovascular exercise and weight training. Adequate protein intake, Recommended at least 20 g per meal of protein to assist with satiety. Decrease soda and sugary beverage consumption. - POCT HGB A1C - Hemoglobin A1c; Future - FREESTYLE LITE test strip; Use to test blood sugar a few times per week and more as needed if symptomatic - Lancets misc; Use to test blood sugar a few times per week and more as needed if symptomatic - Alcohol Swabs 70 % pads; Use to clean skin before fingerstick - Blood Glucose Monitoring Suppl (FreeStyle [place] Lite) w/Device kit; Use to test blood sugar a few times per week Dizziness Neuroexam here is reassuring. No orthostatic hypotension. Gave Larisa handout to do at home, recommend change positions slowly, aggressive hydration with at least 1.5 L water daily. Right now not drinking much water. Follow-up here in 6 weeks for blood sugar and weight documented in this encounter Plan of Treatment Upcoming Encounters Date Type Department Care Team (Late st Contact Info) Description 07/11/2024 3:00 PM EST Office Visit [facility] ADULT DENTAL [address] [place] [address] StveenFarzanana 08/10/2024 3:15 PM EDT Office Visit [facility] MEDICINE [address] [place] [address] Lita Graham ANP [address] [place] [address] Scheduled Orders Name Type Priority Associated Diagnoses Orde r Schedule Lipid Panel, Standard Lab Routine Hypercholesterolemia Expected: 06/15/2024 (Approximate), Expires: 06/15/2025 Hemoglobin A1c Lab Routine Prediabetes Expected: 06/15/2024 (Approximate), Expires: 06/15/2025 documented as of this encounter Procedures Procedure Name Priority Date/Time Associated Diagnosis Comments POCT GLYCATED HEMOGLOBIN, TOTAL Routine 06/15/2024 4:14 PM EST Prediabetes documented in this encounter Results * (ABNORMAL) POCT HGB A1C (06/15/2024 4:14 PM EST) Hemoglobin A1C 6.5(A) 4.0 - 6.0 % QC Media Lot # [id number] Lot# Expiration Date [id number] Blood 06/15/2024 4:14 PM EST Lita MACDONALD POINT OF CARE TEST ENTER/EDIT OR DERABLES Final Result documented in this encounter Visit Diagnoses Diagnosis Hypercholesterolemia- Primary Pure hypercholesterolemia Obstructive sleep apnea syndrome Obstructive sleep apnea (adult) (pediatric) Prediabetes Other abnormal glucose Dizziness Dizziness and giddiness documented in this encounter Additional Health Concerns Assessment Noted Time PHQ-9 Depression Total Score: 4 06/15/19 25 4:08 PM EST documented as of this encounter Care Teams Composition Stone Applicator Relationship Specialty Start Date End Date Lita Graham ANP [address] [place] [address] PCP - General Family Medicine 06/27/21 documented as of this encounter
--- OUTSIDE RECORDS SUMMARY | 2024-06-25 08:26 | XMS_ITS | Encounter Summary ---
Author Organization [employer] Address [address] [place] [address] Care Team Providers Care Cloth Doubling Machine Operator Name Role Phone Lita Graham Primary Care Provider [phone] Reason for Visit * Reason Onset Date Comments Medication Question 06/13/2024 Med Refill 06/13/2024 Encounter Details Date Type Department Care Team (Late st Contact Info) Description 06/13/2024 Refill [facility] [address] [place], [place] [phone] Lita Graham ANP [address] [place], [place] [phone] Social History Tobacco Use Types Packs/Day Years [...] PM EST documented as of this encounter Miscellaneous Notes * Telephone Encounter - Shamar Mcclellan - 06/13/2024 9:53 AM EST Tc from pt Spouse stating that they have been trying to get med atorvastatin (Lipitor) 20 MG tablet But they have not been able to Refill it. Web Press Roll Tender called Pharmacy and found out that they weren't getting the refill because Pharmacy does nottake pt Insurance so the med was not covered by them. Spouse requesting for med to be sent to [facility] instead of [facility]. documented in this encounter Plan of Treatment Upcoming Encounters Date Type Department Care Team (Late st Contact Info) Description 07/11/2024 3:00 PM EST Office Visit [facility] ADULT DENTAL [address] [place] [address] Kiki Harris 08/10/2024 3:15 PM EDT Office Visit [facility] [address] [place] [address] Lita Graham ANP [address] [place] [address] documented as of this encounter Visit Diagnoses Not on filedocumented in this encounter Care Teams Cloth Doubling Machine Operator Relationship Specialty Start Date End Date Lita Graham ANP [address] [place] [address] PCP - General Family Medicine 06/27/21 documented as of this encounter
--- OUTSIDE RECORDS SUMMARY | 2024-06-25 08:26 | XMS_ITS | Clinical Summary ---
Author Organization [employer] Address [address] [place] [address] Care Team Providers Care Supervisor Tank Storage Name Role Phone Lita Graham TORRES Primary Care Provider [phone] Allergies No known active allergies Medications hydrocortisone 2.5 % creamIndication s:Pruritus of groin in male Apply to affected area up to twice daily as needed for itching 28 g 1 05/16/20 22 Active Additional Information Patient not taking.Reported on 05/12/2024 amoxicillin-cla vulanate (Augmentin) 875-125 MG tablet Take 1 tablet by mouth 2 times daily. 14 tablet 02/05/20 23 Active Additional Information Patient not taking.Reported on 05/12/2024 ibuprofen 400 MG tablet Take 1 tablet (400 mg) by mouth every 6 (six) hours if needed for moderate pain or fever for up to 30 doses. 30 tablet 02/05/20 23 Active cetirizine (ZyrTEC) 10 MG tabletIndicatio ns:Generalized pruritus Take 1 tablet (10 mg) by mouth in the morning. 90 tablet 2 04/23/20 23 Active sodium chloride (Christian Nasal [place]) 0.65 % nasal spray Administer 1 spray into each nostril if needed for congestion. 30 mL 09/07/19 24 2024 Active fluticasone (Flonase Allergy Relief) 50 MCG/ACT nasal spray Administer 1 spray into each nostril Once per day. Shake gently. Before first use, prime pump. After use, clean tip and replace cap. 16 g 1 09/07/19 24 2024 Active HYDROcodone-tomasa taminophen ([place]) 5-325 MG tablet take 1 tablet by mouth every 4 to 6 hours as needed for pain 06/22/19 24 Active acetaminophen (Tylenol) 500 MG tablet Take 2 tablets (1,000 mg) by mouth every 6 (six) hours if needed for moderate pain or fever for up to 25 doses. 30 tablet 05/17/20 24 Active atorvastatin (Lipitor) 20 MG tablet TAKE 1 TABLET BY MOUTH AT BEDTIME ONCE DAILY 90 tablet 1 06/13/19 25 Active FREESTYLE LITE test stripIndication s:Prediabetes Use to test blood sugar a few times per week and more as needed if symptomatic 100 each 06/15/19 25 2025 Active Lancets miscIndications :Prediabetes Use to test blood sugar a few times per week and more as needed if symptomatic 100 each 3 06/15/19 25 Active Alcohol Swabs 70 % padsIndications :Prediabetes Use to clean skin before fingerstick 100 each 11 06/15/19 25 Active Blood Glucose Monitoring Suppl (FreeStyle [place] Lite) w/Device kitIndications: Prediabetes Use to test blood sugar a few times per week 1 kit 06/15/19 25 Active ondansetron (Zofran) 4 MG tabletIndicatio ns:Flu,Exacerba tion of intermittent asthma, unspecified asthma severity Take 1 tablet (4 mg) by mouth every 8 (eight) hours if needed for nausea or vomiting for up to 7 days. 20 tablet 06/18/19 25 2024 Active albuterol (Ventolin HFA) 108 (90 Base) MCG/ACT inhalerIndicati ons:Flu,Exacerb ation of intermittent asthma, unspecified asthma severity Inhale 2 puffs by mouth every 4-6 hours as needed 18 g 1 06/18/19 25 Active ProAir HFA 108 (90 Base) MCG/ACT inhaler INHALE 2 PUFFS BY MOUTH EVERY 4-6 HOURS NEEDED 10/03/19 22 2024 Discontinued(D uplicate order (will not trigger notification to Pharmacy)) albuterol (Ventolin HFA) 108 (90 Base) MCG/ACT inhaler Inhale 2 puffs by mouth every 4-6 hours as needed 18 g 1 09/16/19 23 2024 Discontinued(R eorder (will not trigger notification to Pharmacy)) atorvastatin (Lipitor) 20 MG tablet TAKE 1 TABLET BY MOUTH EVERY MORNING 90 tablet 1 08/24/19 24 2024 Discontinued(R eorder (will not trigger notification to Pharmacy)) atorvastatin (Lipitor) 20 MG tablet TAKE 1 TABLET BY MOUTH EVERY MORNING 90 tablet 1 05/31/19 25 2024 Discontinued(R eorder (will not trigger notification to Pharmacy)) oseltamivir (Tamiflu) 75 MG capsuleIndicati ons:Flu,Exacerb ation of intermittent asthma, unspecified asthma severity Take 1 capsule (75 mg) by mouth 2 times daily for 5 days. 10 capsule 06/18/19 25 2024 predniSONE (Deltasone) 20 MG tabletIndicatio ns:Flu,Exacerba tion of intermittent asthma, unspecified asthma severity Take 2 tablets (40 mg) by mouth Once per day for 5 days. 10 tablet 06/18/19 25 2024 Active Problems Problem Noted Date Diagnosed Date Elevated blood pressure reading 09/07/2023 Assessment & Plan (09/07/2023 12:08 PM EDT): Advised to keep BP readings , specially after URI is resolved, should fu with PC in Counseled re low salt diet/increase moderate physical activity. Check home BP BIW and prn CP/HILLS/DUKES Non smoking patient. Acute URI 09/07/2023 Assessment & Plan (09/07/2023 12:10 PM EDT): Rapid viral tests are NEG today. Rest (sleep at least 8 hours a night). Hydrate with plenty of water (avoid caffeine and alcohol). Use saline nose drops to loosen mucus Take Acetaminophen (Tylenol??)/Ibuprofen as needed to reduce fever, headache, body aches or discomfort + Fluticasone nasal x 7d Gargle with salt water and use throat sprays/lozenges for throat pain. Use heated, humidified air. If you do not have a humidifier, take hot showers. Cover coughs and sneezes using the crook of your elbow. Out of work x 2d Generalized pruritus 04/23/2023 Hypercholesterolemia 05/02/2022 Prediabetes 05/02/2022 Mild intermittent asthma 05/02/2022 Obstructive sleep apnea syndrome 05/02/2022 Encounters Date Type Department Care Team Description 06/18/2024 12:20 PM EST Office Visit [facility] [address] [place] [phone] Name, MD Malik Flu (Primary Dx); Exacerbation of intermittent asthma, unspecified asthma severity 06/18/2024 Travel 06/15/2024 3:45 PM EST Office Visit [address] [address] Lita Graham ANP Hypercholesterolemia (Primary Dx); Obstructive sleep apnea syndrome; Prediabetes; Dizziness 06/15/2024 Travel 06/14/[address] [address] Mirta Justin [place] chart prep 06/13/[address] [address] Lita Graham ANP Nurse Triage 06/13/[address] [address] Lita Graham ANP 06/13/[address] [address] Lita Graham ANP Chart Prep; Med Refill (Pt showed concerns in still not receiving his cholesterol medication, reported that he was sent to the hospital ([facility]) on of last week due to high BP reading.) 06/08/2024 Patient Outreach [address] [address] Lita Graham ANP Care Coordination (CHW outreach for SDOH food needs-referral completed /) 06/07/2024 Patient Outreach [address] [address] Lita Graham ANP Pre-visit Planning (SDOH Screening positive and Tobacco screening negative) 06/02/2024 2:30 PM EST Office Visit [facility] [address] [place], [place] [phone] Chad Avilez 05/31/2024 Refill [facility] [address] [place] [address] Lita Graham ANP 05/23/2024 3:00 PM EST Office Visit [facility] [address] [place] [address] Ascencion Avilezpreeugenio 05/16/2024 Refill [facility] [address] [place] [address] Ramila Barbosa MD 05/12/2024 2:00 PM EST Office Visit [facility] AD[facility] [address] [place] [address] Kiki Harris Dental calculus (Primary Dx) from Last 3 Months Immunizations Name Administration Dates Next Due Hep A, Adult 09/24/2022 Hep B, adult 10/17/2021,07/25/2021,06/27/2021 Influenza injectable quadriv alent IIV4 with preservative 07/17/2017,02/17/2016 Influenza injectable quadriv alent preservative free 04/23/2023 Pneumococcal Polysaccharide PPSV23 09/14/2018 Tdap 10/03/2022,06/27/2021,03/21/2016 Family History Medical History Relation Name Comments Heart attack Father Heart disease Father Stroke Father Diabetes Other Relation Name Status Comments Father Other Social History Tobacco Use Types Packs/Day Years [...] Orientation Straight 05/12/2024 12 :58 PM EST Last Filed Vital Signs Vital Sign Reading Time Taken Comments Blood Pressure 124/89 06/18/2024 12:08 PM EST Pulse 98 06/18/2024 12:08 PM EST Temperature 37.3 ??C (99.1 ??F) 06/18/2024 12:[address] Respiratory Rate 20 06/18/2024 12:08 PM EST Oxygen Saturation 97% 06/18/2024 12:08 PM EST Inhaled Oxygen Concentration - - Weight 130 kg (287 lb) 06/18/2024 12:08 PM EST Height 160 cm (5' 3 ) 08/14/2023 2:57 PM EDT Body Mass Index 50.84 08/14/2023 2:57 PM EDT Plan of Treatment Upcoming Encounters Date Type Department Care Team (Late st Contact Info) Description 07/11/2024 3:00 PM EST Office Visit [facility]ULT [facility] [address] [place], [place] [phone] Kiki Harris 08/10/2024 3:15 PM EDT Office Visit [facility] [address] [place], [place] [phone] Lita Graham ANP [address] [place], [place] [phone] Health Maintenance Due Date Last Done Comments Family Planning (PISQ) 2004 Pneumococcal Vaccine: Pediatrics (0 to 5 Years) and At-Risk Patients (6 to 49) Years) (2 of 2 - PCV) 09/15/2019 09/14/2018 COVID-19 Vaccine (3 - season) 2024 10/03/2022, 05/10/2021 Influenza Vaccine (#1) 2024 , 07/17/2017, 02/17/2016 Dental Prophylaxis 11/11/2024 05/12/2024 Dental Oral Exam 11/21/2024 05/23/2024 Dental X-Ray: Bitewings 05/13/2025 05/12/2024 SDOH Screening 06/07/2025 06/07/2024 Alcohol/Substance Use Screening 06/15/2025 06/15/2024 Depression Screening 06/15/2025 06/15/2024, 06/15/19 Diabetes: Hemoglobin A1C 06/15/2025 025, 08/22/2023, 10/14/2022, Additional history exists Tobacco Screening 06/15/2025 06/15/2024 Dental X-Ray: Full Mouth 05/13/2027 05/12/2024 Lipid Panel 08/21/2028 08/22/2023, 09/17, 05/13/2022, Additional history exists DTaP/Tdap/Td Vaccines (4 - Td or Tdap) 10/03/2032 10/03/2022, 06/27/2021, 03/21/2016 Zoster Vaccines (1 of 2) 2039 RSV Patients and Patients Aged 60 years or older (1 - 1-dose 75+ series) 2064 HIV Screening Completed 06/06/2021 Hepatitis C Screening Completed 06/06/2021 Hepatitis B Vaccines Completed 10/17/2021, 07/25/2021, 06/27/2021 Hepatitis A Vaccines Aged Out 09/24/2022 No long er eligible based on patient's age to complete this topic HIB Vaccines Aged Out No longer eligi ble based on patient's age to complete this topic HPV Vaccines Aged Out No longer eligi ble based on patient's age to complete this topic IPV Vaccines Aged Out No longer eligi ble based on patient's age to complete this topic Meningococcal Vaccine Aged Out No daren quynh eligible based on patient's age to complete this topic RSV under 20 months Aged Out No longe r eligible based on patient's age to complete this topic Rotavirus Vaccines Aged Out No longer eligible based on patient's age to complete this topic Procedures Procedure Name Priority Date/Time Associated Diagnosis Comments POCT INFLUENZA B (ID NOW RAPID MOLECULAR) Routine 06/18/2024 12:39 PM EST Flu POCT INFLUENZA A (ID NOW RAPID MOLECULAR) Routine 06/18/2024 12:38 PM EST Flu POCT RAPID COVID ANTIGEN Routine 06/18/2024 12:38 PM EST Flu POCT GLYCATED HEMOGLOBIN, TOTAL Routine 06/15/2024 4:14 PM EST Prediabetes 30 MOL RESTORATIVE - RESIN-BASED COMPOSITE RESTORATIONS - DIRECT - RESIN-BASED COMPOSITE - THREE SURFACES, POSTERIOR Routine 06/02/2024 2:30 PM EST COMPREHENSIVE ORAL EVALUATION - NEW OR ESTABLISHED PATIENT Routine 05/23/2024 3:00 PM EST 31 LO AMALGAM FILLING Routine 05/23/2024 12:00 AM EST 30 GERARDO AMALGAM FILLING Routine 12:00 AM EST 19 LUZ MARIA AMALGAM FILLING Routine 05/23/2024 12:00 AM EST 18 LUZ MARIA AMALGAM FILLING Routine 05/23/2024 12:00 AM EST 14 O AMALGAM FILLING Routine 05/23/2024 12:00 AM EST 3 GERARDO AMALGAM FILLING Routine 05/23/2024 12:00 AM EST 5 DO COMPOSITE FILLING Routine 12:00 AM EST 4 MO COMPOSITE FILLING Routine 12:00 AM EST DIAGNOSTIC - DIAGNOSTIC IMAGING - INTRAORAL - COMPREHENSIVE SERIES OF RADIOGRAPHIC IMAGES Routine 05/12/2024 2:00 PM EST ORAL HYGIENE INSTRUCTIONS Routine 05/12/2024 2:00 PM EST ADJUNCTIVE GENERAL SERVICES - PROFESSIONAL VISITS - CASE PRESENTATION, SUBSEQUENT TO DETAILED AND EXTENSIVE TREATMENT PLANNING Routine 05/12/2024 2:00 PM EST PROPHYLAXIS - ADULT Routine 05/12/2024 2 :00 PM EST 17 EXTRACTION Routine 05/12/2024 12:00 AM EST 16 EXTRACTION Routine 05/12/2024 12:00 AM EST 32 EXTRACTION Routine 05/12/2024 12:00 AM EST 1 EXTRACTION Routine 05/12/2024 12:00 AM EST LIPID PANEL, STANDARD Routine 08/22/2023 8:38 AM EDT Prediabetes Hypercholesterolem ia ZZZ HISTORICAL HEPATITIS C AB W/REFL TO HCV RNA, QN, PCR Routine 06/06/2021 3:36 PM EST HIV 1/2 ANTIGEN/ANTIBODY, FOURTH GENERATION W/RFL Routine 06/06/2021 3:36 PM EST from Last 3 Months or Most Recently Relevant to Health Maintenance Results * POCT Rapid Influenza B OCONNOR ID NOW (06/18/2024 12:39 PM EST) Influenza B Negative Negative, Indeterminate [facility] QC Media Lot # [id number] [facility] Lot# Expiration Date [facility] Swab 06/18/2024 12:3 9 PM EST us Malik Horn MD POINT OF CARE TEST ENTER/EDIT OR DERABLES Final Result [facility] [address] [place] [phone] * (ABNORMAL) POCT Rapid Influenza A OCONNOR ID NOW (06/18/2024 12:38 PM EST) Influenza A Positive( A) Negative, Indeterminate [facility] QC Media Lot # [id number] [facility] Lot# Expiration Date [facility] Swab 06/18/2024 12:3 8 PM EST us Malik Horn MD POINT OF CARE TEST ENTER/EDIT OR DERABLES Final Result [facility] [address] [place] [address] [phone] * POCT Rapid Covid-19 BinaxNOW (06/18/2024 12:38 PM EST) Pathologist [facility] Rapid COVID Ag Negative QC Media Lot # [id number] Lot# Expiration Date Swab 06/18/2024 12:3 8 PM EST Malik Horn MD POINT OF CARE TEST ENTER/EDIT OR DERABLES Final Result * (ABNORMAL) POCT HGB A1C (06/15/2024 4:14 PM EST) Pathologist [facility] Hemoglobin A1C 6.5(A) 4.0 - 6.0 % QC Media Lot # [id number] Lot# Expiration Date Blood 06/15/2024 4:14 PM EST Lita Graham TORRES POINT OF CARE TEST ENTER/EDIT OR DERABLES Final Result * (ABNORMAL) Lipid Panel, Standard (08/22/2023 8:38 AM EDT) Pathologist [facility] Triglycerides 88 <150 mg/dL [facility] Comment:Desirable Triglyceri de: less than 150 mg/dLBorderline High Triglyceride 150-199 mg/dLHigh Triglyceride: 200-499 mg/dLVery High Triglyceride: greater than or equal to 5OO mg/dL Cholesterol 161 <200 mg/dL [facility] Comment:Desirable Cholestero l: less than 200 mg/dLBorderline High Cholesterol: 200-239 mg/dLHigh Cholesterol: greater than 239 mg/dL LDL Cholesterol Calculated 114(H) <100 mg/dL [facility] Comment:Desirable LDL: less than 100 mg/dLNear Optimal/Above Optimal LDL: 110- 129 mg/dLBorderline High LDL: 130-159 mg/dLHigh LDL: 160-189 mg/dLVery High LDL: greater than or equal to 190 mg/dL HDL Cholesterol 30(L) >40 mg/dL [facility] Comment:Desirable HDL: great er than 40 mg/dL Note: This HDL assay may give artificially low results in patients with liver disease. Blood Venous blood specimen / Unknown 08/22/2023 8:38 AM EDT 08/22/2023 8:38 AM EDT Lita Graham [facility] LAB BLOOD ORDERABLES Final Resul t Performing Organization Address [facility] Co de Phone Number [facility] [address] [place] [address] [phone] * HEPATITIS C AB W/REFL TO HCV RNA, QN, PCR (06/06/2021 3:36 PM EST) HEPATITIS C ANTIBODY NON-REACT RAFAEL NON-REACT RAFAEL [facility] INDEX 0.04 <1.00 [facility] Comment: ?? HCV antibody was non-reactive. There is no laboratory ?? evidence of HCV infection. ?? In most cases, no further action is required. However, if recent HCV exposure is suspected, a test for HCV RNA (test code 97641) is suggested. ?? For additional information please refer to http://education.[employer]/faq/OXJ57p5 (This link is being provided for informational/ educational purposes only.) ?? 06/06/2021 3:36 PM EST Joel Mcmahan MD HISTORICAL/NON ORDERABLE LABS Fi nal Result Performing Organization Address [facility] Co de Phone Number [facility] [address] * HIV 1/2 ANTIGEN/ANTIBODY,FOURTH GENERATION W/RFL (06/06/2021 3:36 PM EST) HIV-1/2 ANTIGEN AND ANTIBODIES, 4TH GENERATION W/ REFLEX NON-REACT RAFAEL NON-REACT RAFAEL [facility] Comment: HIV-1 antigen and HIV-1/HIV-2 antibodies were not detected. There is no laboratory evidence of HIV infection. ?? PLEASE NOTE: This information has been disclosed to you from records whose confidentiality may be protected by state law. ??If your state requires such protection, then the state law prohibits you from making any further disclosure of the information without the specific written consent of the person to whom it pertains, or as otherwise permitted by law. A general authorization for the release of medical or other information is NOT sufficient for this purpose. ? For additional information please refer to http://[facility] [employer]/faq/KJW723 (This link is being provided for informational/ educational purposes only.) ? The performance of this assay has not been clinically validated in patients less than 2 years old. ?? 06/06/2021 3:36 PM EST us Joel Mcmahan MD LAB BLOOD ORDERABLES Final Resul t [facility] [address] from Last 3 Months or Most Recently Relevant to Health Maintenance Insurance [facility] [place] [address] DENTAL - HSN FULL (MEDICAID) [facility] Care Teams Supervisor Tank Storage Relationship Specialty Start Date End Date Lita Graham ANP [address] [place] [address] PCP - General Family Medicine 06/27/21
--- OUTSIDE RECORDS SUMMARY | 2024-06-25 08:26 | XMS_ITS | Encounter Summary ---
Author Organization [employer] Address [address] 7[address] [place] [address] Care Team Providers Care Icer Machine Name Role Phone Lita Graham Primary Care Provider [phone] Reason for Visit * Reason Comments Vomiting Encounter Details Date Type Department Care Team ([facility] st Contact Info) Description 06/18/2024 12:20 PM EST Office Visit [facility] [address] [place] [address] [phone] Name, MD Malik [address] [place], [place] [phone] Flu (Primary Dx); Exacerbation of intermittent asthma, unspecified asthma severity Social History Tobacco Use Types Packs/Day Years [...] (287 lb) 06/18/2024 12:08 PM EST Height - - Body Mass Index 50.84 08/14/2023 2:57 PM EDT documented in this encounter Progress Notes * Malik Horn MD - 06/18/2024 12:20 PM EST Subjective Patient ID: Thomas Monroe is a 34 y.o. male who presents for Vomiting. Patient has fever/chills/vomiting/cough/wheezing/runny nose/headache since yesterday He has asthma and tested positive for flu A today Vomiting Associated symptoms include chills, coughing, a fever and headaches. Pertinent negatives include nochest pain. Review of Systems Constitutional: Positive for chills, fatigue and fever. Respiratory: Positive for cough, shortness of breath and wheezing. Cardiovascular: Negative for chest pain and leg swelling. Gastrointestinal: Positive for vomiting. Vomited 5 times since yesterday No hematemesis Neurological: Positive for headaches. Visit Vitals BP 124/89 Pulse 98 Temp 99.1 ??F (37.3 ??C) (Oral) Resp 20 Wt 287 lb (130 kg) SpO2 97% BMI 50.84 kg/m?? Smoking Status Former BSA 2.4 m?? Objective Physical Exam Constitutional: General: He is not in acute distress. Appearance: Normal appearance. He is not toxic-appearing. Cardiovascular: Rate and Rhythm: Normal rate and regular rhythm. Heart sounds: No murmur heard. Pulmonary: Effort: Pulmonary effort is normal. No respiratory distress. Breath sounds: No wheezing, rhonchi or rales. Abdominal: Palpations: Abdomen is soft. Tenderness: There is no abdominal tenderness. Musculoskeletal: Right lower leg: No edema. Left lower leg: No edema. Neurological: Mental Status: He is alert. Latest Reference Range & Units 06/18/24 12:38 06/18/24 12:39 Influenza A Negative, Indeterminate Positive ! Influenza B Negative, Indeterminate Negative [employer] Media Lot # [id number] Rapid COVID Ag Negative !: Data is abnormal Assessment/Plan Diagnoses and all orders for this visit: Flu Comments: Patient has influenza A and asthma exacerbation. He is recommended fluids, rest, Tylenol as needed, course of Zofran, Tamiflu, prednisone, rescue albuterol, mask until he has been afebrile for a day without using the Tylenol, note for work. He is recommended to call of come back if he is not better by next week. Orders: - POCT Rapid Covid-19 BinaxNOW - POCT Rapid Influenza B OCONNOR ID NOW - POCT Rapid Influenza A OCONNOR ID NOW - ondansetron (Zofran) 4 MG tablet; Take 1 tablet (4 mg) by mouth every 8 (eight) hours if needed for nausea or vomiting for up to 7 days. - oseltamivir (Tamiflu) 75 MG capsule; Take 1 capsule (75 mg) by mouth 2 times daily for 5 days. - predniSONE (Deltasone) 20 MG tablet; Take 2 tablets (40 mg) by mouth Once per day for 5 days. - albuterol (Ventolin HFA) 108 (90 Base) MCG/ACT inhaler; Inhale 2 puffs by mouth every 4-6 hours as needed Exacerbation of intermittent asthma, unspecified asthma severity - ondansetron (Zofran) 4 MG tablet; Take 1 tablet (4 mg) by mouth every 8 (eight) hours if needed for nausea or vomiting for up to 7 days. - oseltamivir (Tamiflu) 75 MG capsule; Take 1 capsule (75 mg) by mouth 2 times daily for 5 days. - predniSONE (Deltasone) 20 MG tablet; Take 2 tablets (40 mg) by mouth Once per day for 5 days. - albuterol (Ventolin HFA) 108 (90 Base) MCG/ACT inhaler; Inhale 2 puffs by mouth every 4-6 hours as needed documented in this encounter Plan of Treatment Upcoming Encounters Date Type Department Care Team (Late st Contact Info) Description 07/11/2024 3:00 PM EST Office Visit [facility] [address] [place] [address] Kiki Harris 08/10/2024 3:15 PM EDT Office Visit [facility] [address] [place], [place] [phone] Lita Graham ANP [address] [place] [address] documented as of this encounter Procedures Procedure Name Priority Date/Time Associated Diagnosis Comments POCT INFLUENZA B (ID NOW RAPID MOLECULAR) Routine 06/18/2024 12:39 PM EST Flu POCT INFLUENZA A (ID NOW RAPID MOLECULAR) Routine 06/18/2024 12:38 PM EST Flu POCT RAPID COVID ANTIGEN Routine 06/18/2024 12:38 PM EST Flu documented in this encounter Results * POCT Rapid Influenza B OCONNOR ID NOW (06/18/2024 12:39 PM EST) [facility] Influenza B Negative Negative, Indeterminate [facility] QC Media Lot # [id number] [facility] Lot# Expiration Date 8,026 [facility] Swab 06/18/2024 12:3 9 PM EST Malik Horn MD POINT OF CARE TEST ENTER/EDIT OR DERABLES Final Result Performing Organization Address City/[facility]/ZIP Co de Phone Number [facility] [address] [place] [phone] * (ABNORMAL) POCT Rapid Influenza A OCONNOR ID NOW (06/18/2024 12:38 PM EST) Influenza A Positive( A) Negative, Indeterminate [facility] QC Media Lot # [id number] [facility] Lot# Expiration Date 9,748 [facility] Swab 06/18/2024 12:3 8 PM EST Malik Horn MD POINT OF CARE TEST ENTER/EDIT OR DERABLES Final Result Performing Organization Address City/[facility] Co de Phone Number [facility] [address] [place] [address] [phone] * POCT Rapid Covid-19 BinaxNOW (06/18/2024 12:38 PM EST) Rapid COVID Ag Negative QC Media Lot # [id number] Lot# Expiration Date ,026 Swab 06/18/2024 12:3 8 PM EST us Malik Horn MD POINT OF CARE TEST ENTER/EDIT OR DERABLES Final Result documented in this encounter Visit Diagnoses Diagnosis Flu- Primary Influenza with other respiratory manifestations Exacerbation of intermittent asthma, unspecified asthma severity documented in this encounter Additional Health Concerns Assessment Noted Time PHQ-9 Depression Total Score: 4 06/15/19 25 4:08 PM EST documented as of this encounter Care Teams Icer Machine Relationship Specialty Start Date End Date Lita Graham ANP [address] [place] [address] PCP - General Family Medicine 06/27/21 documented as of this encounter
--- OUTSIDE RECORDS SUMMARY | 2024-06-25 08:26 | XMS_ITS | Encounter Summary ---
Author Organization [employer] Address [address] [place] [address] Care Team Providers Care Porter Baggage Name Role Phone Lita Graham TORRES Primary Care Provider [phone] Encounter Details Date Type Department Care Team (Latest Contact Info) Description 06/18/2024 Travel Social History Tobacco Use Types Packs/Day Years [...] PM EST documented as of this encounter Plan of Treatment Upcoming Encounters Date Type Department Care Team (Late st Contact Info) Description 07/11/2024 3:00 PM EST Office Visit [facility] CH[facility] ADULT DENTAL [address] [place] [address] Kiki Harris 08/10/2024 3:15 PM EDT Office Visit [facility] [address] [place] [address] Lita Graham ANP [address] [place] [address] documented as of this encounter Visit Diagnoses Not on filedocumented in this encounter Additional Health Concerns Assessment Noted Time PHQ-9 Depression Total Score: 4 06/15/19 25 4:08 PM EST documented as of this encounter Care Teams Porter Baggage Relationship Specialty Start Date End Date Lita Graham ANP [address] [place] [phone] PCP - General Family Medicine 06/27/21 documented as of this encounter
--- OUTSIDE RECORDS SUMMARY | 2024-06-25 08:26 | XMS_ITS | Encounter Summary ---
Author Organization [employer] Address [address] [place] [address] Care Team Providers Care Electrician'S Assistant Name Role Phone Lita Graham Primary Care Provider [phone] Reason for Visit * Reason Comments Care Coordination CHW outreach for SDO H food needs-referral completed Encounter Details Date Type Department Care Team (Latest Contact Info) Description 06/08/2024 Patient Outreach [facility] MED[facility] [address] [place] [address] Lita Graham ANP [address] [place] [address] Care Coordination (CHW outreach for SDOH food needs-referral completed /) Social History Tobacco Use Types Packs/Day Years [...] PM EST documented as of this encounter Progress Notes * Ishan Venegas - 06/08/2024 9:16 AM EST CHW Ishan Venegas, placed outbound call to patient for assistance with SDOH as a referral was received by the provider. Patient's name and were confirmed. Patient screened positive for the following SDOH food insecurities. CHW referral patient to the local list of pantries in the area for help. Patient verbalizes understanding, and able to agree with plan to follow up. Patient educated on ex tended clinic hours on Mondays through Wednesdays, and Walk-In Urgent Care Located in [facility] of [facility].Patient provided with after-hours line for [facility], , which offer night time triage serviceand option to transfer to solvent station attendant provider if needed. documented in this encounter Plan of Treatment Upcoming Encounters Date Type Department Care Team (Late st Contact Info) Description 07/11/2024 3:00 PM EST Office Visit [facility] CHC ADULT DENTAL [address] [place] [address] Kiki Harris 08/10/2024 3:15 PM EDT Office Visit [facility] [address] [place] [address] Lita GrahamTORRES [address] [place] [address] documented as of this encounter Visit Diagnoses Not on filedocumented in this encounter Care Teams Electrician'S Assistant Relationship Specialty Start Date End Date Lita Graham ANP [address] [place] [address] PCP - General Family Medicine 06/27/21 documented as of this encounter
--- OUTSIDE RECORDS SUMMARY | 2024-06-25 08:26 | XMS_ITS | Encounter Summary ---
Author Organization [employer] Address [address] [place] [address] Care Team Providers Care Realtime Reporter Name Role Phone Lita Graham Primary Care Provider [phone] Reason for Visit * Reason Onset Date Comments Med Refill 05/31/2024 Encounter Details Date Type Department Care Team (Late st Contact Info) Description 05/31/2024 Refill [facility] [address] [place] [address] Lita Graham ANP [address] [place], [place] [phone] Social History Tobacco Use Types Packs/Day Years [...] encounter Miscellaneous Notes * Telephone Encounter - Dena Godinez LPN - 05/31/2024 1:49 PM EST Next appointment 06/21/24. * Telephone Encounter - Ricardo Griffin - 05/31/2024 1:01 PM EST TC from pt requesting medication refill. Medications needing refill : atorvastatin (Lipitor) 20 MG tablet To be sent to: [id number] documented in this encounter Plan of Treatment Upcoming Encounters Date Type Department Care Team (Late st Contact Info) Description 07/11/2024 3:00 PM EST Office Visit [facility] CH[facility] ADULT DENTAL [address] [place] [address] Kiki Harris 08/10/2024 3:15 PM EDT Office Visit [facility] [address] [place] [address] Lita Graham ANP [address] [place] [address] documented as of this encounter Visit Diagnoses Not on filedocumented in this encounter Care Teams Realtime Reporter Relationship Specialty Start Date End Date Lita Graham ANP [address] [place] [address] PCP - General Family Medicine 06/27/21 documented as of this encounter
--- OUTSIDE RECORDS SUMMARY | 2024-06-25 08:26 | XMS_ITS | Encounter Summary ---
Author Organization [employer] Address [address] [place] [address] Care Team Providers Care Nursing Unit Manager Name Role Phone Lita Graham Primary Care Provider Reason for Visit * Reason Onset Date Comments Chart Prep 06/13/2024 Med Refill 06/13/2024 Pt showed concer ns in still not receiving his cholesterol medication, reported that he was sent to the hospital ([facility]) on of last week due to high BP reading. Encounter Details Date Type Department Care Team (Late st Contact Info) Description 06/13/2024 Telephone [facility] [address] [place], [place] [phone] Lita Graham ANP [address] [place], [place] [phone] Chart Prep; Med Refill (Pt showed concerns in still not receiving his cholesterol medication, reported that he was sent to the hospital ([facility]) on of last week due to high BP reading.) Social History Tobacco Use Types Packs/Day Years [...] encounter Miscellaneous Notes * Telephone Encounter - Aylin Bui RN - 06/13/2024 11:07 AM EST Atorvastatin refill sent this morning. Reviewed [facility]. Pt seen 06/09 for Dx peripheral vertigo and palpitations. Blood pressure mildly elevated at 137/71 at the ED. Scanned ED summary into chart under media. Pt to follow up with PCP at upcoming appt. * Telephone Encounter - Amberly Dupont MA - 06/13/2024 9:51 AM EST Chart Prep Contacted pt in regards to PE appt on 06/21/2024, expressed that due to the provider he is seeing has a recommended preference of going about Annual Exams; the pt would have to wear a gown for properevaluation, pt understood. Pt also showed concerns in still not receiving his cholesterol medication, reported that he was sent to the hospital ([facility]) on of last week due to high BP reading. Labs: not applicable Images: not applicable Vaccines due: Covid Due, PCV20 Due, and Flu Due Referrals: Not Applicable Screenings: Not Applicable Overdue care gaps: Sbirt and PHQ-9 Chart prep for upcoming appt with Dr.Esparza salmon. LB documented in this encounter Plan of Treatment Upcoming Encounters Date Type Department Care Team (Late st Contact Info) Description 07/11/2024 3:00 PM EST Office Visit [facility] ADULT DENTAL [address] [place] [address] Kiki Harris 08/10/2024 3:15 PM EDT Office Visit [facility] [address] [place] [address] Lita Graham ANP [address] [place] [address] documented as of this encounter Visit Diagnoses Not on filedocumented in this encounter Care Teams Nursing Unit Manager Relationship Specialty Start Date End Date Lita Graham ANP [address] [place] [phone] PCP - General Family Medicine 06/27/21 documented as of this encounter
--- OUTSIDE RECORDS SUMMARY | 2024-06-25 08:26 | XMS_ITS | Encounter Summary ---
Author Organization [employer] Address [address] [place] [address] Care Team Providers Care Charcoal Kiln Burner Name Role Phone Lita Graham Primary Care Provider [phone] Reason for Visit * Reason Comments Pre-visit Planning SDOH Screening posit alek and Tobacco screening negative Encounter Details Date Type Department Care Team ([facility] st Contact Info) Description 06/07/2024 Patient Outreach [facility] [address] [place], [place] [phone] Lita Graham ANP [address] [place] [address] Pre-visit Planning (SDOH Screening positive and Tobacco screening negative) Social History Tobacco Use Types Packs/Day Years [...] as of this encounter Progress Notes * Oneyda Mariscal - 06/07/2024 2:32 PM EST CC Oneyda Ornelas placed successful outbound call to patient for pre-visit planning. Patient name and confirmed. Patient confirms appt date and time, and has transportation arrangements. Biggest concern for appointment at this time is haven't take his cholesterol medications times two weeks and patient been gaining weight would like to get blood work from DM, and other stuff in general. Patient advised to bring to appointment a photo id and insurance card. Appropriate screenings completed in anticipation of appointment. SDOH positive. Patient looking for assistance with food insecurities: Sometimes. Referral will be placed. documented in this encounter Plan of Treatment Upcoming Encounters Date Type Department Care Team (Late st Contact Info) Description 07/11/2024 3:00 PM EST Office Visit [facility]ULT D[facility] [address] [place] [address] Kiki Harris 08/10/2024 3:15 PM EDT Office Visit [facility] [address] [place] [address] Lita Graham ANP [address] [place] [address] documented as of this encounter Visit Diagnoses Not on filedocumented in this encounter Care Teams Charcoal Kiln Burner Relationship Specialty Start Date End Date Lita Graham ANP [address] [place] [address] PCP - General Family Medicine 06/27/21 documented as of this encounter
--- OUTSIDE RECORDS SUMMARY | 2024-06-25 08:26 | XMS_ITS | Encounter Summary ---
Author Organization [employer] Address [address] [place] [address] Care Team Providers Care Hotel Houseman Name Role Phone Lita Graham Primary Care Provider [phone] Reason for Visit * Reason Onset Date Comments Nurse Triage 06/13/2024 Encounter Details Date Type Department Care Team ([facility] st Contact Info) Description 06/13/2024 Telephone [facility] MEDICINE [address] [place], [place] [phone] Lita Graham ANP [address] [place], [place] [phone] Nurse Triage Social History Tobacco Use Types Packs/Day Years [...] encounter Miscellaneous Notes * Telephone Encounter - Nasima Russo RN - 06/13/2024 4:58 PM EST Please assist with obtaining discharge summary for [facility] ED visit on 06/08/24 for provider review prior to upcoming appointment. Future Appointments Date Time Provider Department Center 06/15/2024 3:45 PM TORRES Cunningham [facility] 06/21/2024 10:30 AM Adalberto Brady MD [facility] * Telephone Encounter - Nasima Russo RN - 06/13/2024 4:41 PM EST Call returned to Thomas Monroe to triage below. Reports using meclizine PRN for dizziness. Pt reports last dose taken this morning. Pt denies any further palpitations. Only having intermittent dizziness. Resolves with meclizine. Denies any ear pain or congestion. Pt would like follow up with primary care provider as sx continue. Pt given appt this week with PCP for follow up. Reviewed home care advise, ER precautions and reasons to call back. Protocol Used: Dizziness (Adult) Protocol-Based Disposition: See in Office or Video Visit Today Override (Final) Disposition: See in Office or Video Visit within 3 Days Override Reason: Already seen and worse Future Appointments Date Time Provider Department Center 06/15/2024 3:45 PM TORRES Cunningham MEDICINE [facility] 06/21/2024 10:30 AM Adalberto Brady MD [facility] Insurance verified as active per [facility]. Positive Triage Question: * Moderate dizziness (e.g., interferes with normal activities) (Exception: Dizziness caused by heatexposure, sudden standing, or poor fluid intake.) * All higher-acuity triage questions were negative Care Advice Discussed: * Reassurance and Education - Dizziness From Standing * Sit Up Slowly Before Standing * Drink Fluids * Lie Down and Rest * Reasons To Call Back - After 2 hours of rest and fluids and you are still feeling dizzy - You become worse * Telephone Encounter - True Walters - 06/13/2024 4:38 PM EST Pt returning call * Telephone Encounter - Nasima Russo RN - 06/13/2024 4:10 PM EST Per [facility] Notes pt seen on 06/09/24 for dizzness. Plan as follows Patient of the patient's laboratorywork he had no leukocytosis, no acute anemia, electrolytes were within normal limits, renal function was within normal limits, TSH was unremarkable, his viral panel came back negative. His EKG was otherwise nonischemic. His chest x-ray did not show any acute cardiopulmonary processes. The patient'sdizziness had improved after a dose of meclizine and p.o. fluids. It is likely that his presentation could be in part due to peripheral vertigo. Will prescribe the patient meclizine and have him follow-up with his outpatient provider. Gave strict return precautions. Rx: Prescription Display Meclizine (meclizine 12.5 mg oral tablet) 1 tablet = 12.5 mg, By Mouth, 3 times a day, # 30 tablet,0 [facility] [place] [address] Call returned to Thomas Monroe for triage below. No answer LVM to return call to [facility] triage line [phone]. * Telephone Encounter - True Sosaarez - 06/13/2024 3:29 PM EST Patient calling to report ED visit on : Date: 06/08/24 Hospital: [facility] Seen for: Palpitations/ dizziness / high b/p Symptomatic Yes *if yes message should go to Triage Still has dizziness documented in this encounter Plan of Treatment Upcoming Encounters Date Type Department Care Team (Late st Contact Info) Description 07/11/2024 3:00 PM EST Office Visit [facility] CHC ADULT DENTAL [address] [place] [address] Kiki Harris 08/10/2024 3:15 PM EDT Office Visit [facility] MEDICINE [address] [place] [address] Lita Graham ANP [address] [place] [address] documented as of this encounter Visit Diagnoses Not on filedocumented in this encounter Care Teams Hotel Houseman Relationship Specialty Start Date End Date Lita Graham ANP [address] [place] [address] PCP - General Family Medicine 06/27/21 documented as of this encounter
--- OUTSIDE RECORDS SUMMARY | 2024-06-25 08:26 | XMS_ITS | Encounter Summary ---
Author Organization [employer] Address [address] [place] [address] Care Team Providers Care Punch Press Feeder Name Role Phone Lita Graham Primary Care Provider [phone] Reason for Visit * Reason Onset Date Comments Med Refill 08/24/2023 Encounter Details Date Type Department Care Team (Late st Contact Info) Description 08/24/2023 Refill [facility] [address] [place] [address] Lita Graham ANP [address] [place], [place] [phone] Social History Tobacco Use Types Packs/Day Years [...] Recorded Patient Health Questionnaire-2 Score 0 09/24/2022 Sex and Gender Information Value Date Recorded Sex Assigned at Male 03/17/2022 10:37 AM EDT Legal Sex Male 10:37 AM EDT Gender Identity Male 03/17/2022 10:37 AM EDT Sexual Orientation Straight 05/12/2024 12 :58 PM EST documented as of this encounter Plan of Treatment Upcoming Encounters Date Type Department Care Team (Late st Contact Info) Description 07/11/2024 3:00 PM EST Office Visit [facility] CH[facility] ADULT DENTAL [address] [place] [address] Kiki Harris 08/10/2024 3:15 PM EDT Office Visit [facility] [address] [place] [address] Lita Graham ANP [address] [place] [address] documented as of this encounter Visit Diagnoses Not on filedocumented in this encounter Care Teams Punch Press Feeder Relationship Specialty Start Date End Date Lita Graham ANP [address] [place] [address] PCP - General Family Medicine 06/27/21 documented as of this encounter
--- OUTSIDE RECORDS SUMMARY | 2024-06-25 08:26 | XMS_ITS | Encounter Summary ---
Author Organization [employer] Address [address] [facility] [facility] [address] [place] [address] Care Team Providers Care Manager Interventional Name Role Phone Gladys Lita MACDONALD Primary Care Provider [phone] Reason for Visit * Reason Onset Date Comments chart prep 06/14/2024 Encounter Details Date Type Department Care Team ([facility] st Contact Info) Description 06/14/2024 Telephone [facility] MEDICINE [address] [place], [place] [phone] Mirta Justin MA chart prep Social History Tobacco Use Types Packs/Day Years [...] Description 07/11/2024 3:00 PM EST Office Visit [facility] CHC ADULT DENTAL [address] [place] [address] Kiki Harris 08/10/2024 3:15 PM EDT Office Visit [facility] MEDICINE [address] [place] [address] Lita Graham ANP [address] [place] [address] documented as of this encounter Visit Diagnoses Not on filedocumented in this encounter Care Teams Manager Interventional Relationship Specialty Start Date End Date Lita Graham ANP [address] [place] [id number] PCP - General Family Medicine 06/27/21 documented as of this encounter
--- OUTSIDE RECORDS SUMMARY | 2024-06-25 08:26 | XMS_ITS | Encounter Summary ---
Author Organization [employer] Address [address] [facility] [address] [place] [address] Care Team Providers Care Head Orthopedic Team Physician Name Role Phone Lita Graham TORRES Primary Care Provider [phone] Encounter Details Date Type Department Care Team (Latest Contact Info) Description 06/15/2024 Travel Social History Tobacco Use Types Packs/Day [...] Description 07/11/2024 3:00 PM EST Office Visit [facility] CHC ADULT DENTAL [address] [place] [address] Kiki Harris 08/10/2024 3:15 PM EDT Office Visit [facility] MEDICINE [address] [place] [address] Lita Graham ANP [address] [place] [address] documented as of this encounter Visit Diagnoses Not on filedocumented in this encounter Additional Health Concerns Assessment Noted Time PHQ-9 Depression Total Score: 4 06/15/19 25 4:08 PM EST documented as of this encounter Care Teams Head Orthopedic Team Physician Relationship Specialty Start Date End Date Lita Graham ANP [address] [place] [phone] PCP - General Family Medicine 06/27/21 documented as of this encounter
[2024-06-25 11:10] LABS: Estimated Average Glucose 131 mg/dL; Hemoglobin A1C 143.4373 umol/L; Hemoglobin A1c % 6.2 % (<6.0); Total Hemoglobin (HGBA1C) 3252.9524 umol/L
[2024-06-25 11:30] LABS: Cholesterol 134 mg/dL (<200); HDL Cholesterol 29 mg/dL (>40); LDL Cholesterol Calculated 88 mg/dL (<100); Triglycerides 85 mg/dL (<150)
== END 2024-06-25 08:24 | disposition home or self-care (01) ==
LOC: HO.LAB 08:23
PROVIDERS: PCP Nurse Practitioner Primary Care; Visit Provider Nurse Practitioner Primary Care
DX: R73.03 Prediabetes (principal); E78.00 Pure hypercholesterolemia, unspecified
CPT/HCPCS: 36415; 80061; 83036

== ENCOUNTER 2025-01-24 14:54 | Outpatient (AMB) | payer OTHER, SELFPAY ==
--- OUTSIDE RECORDS SUMMARY | 2025-01-23 15:30 | XMS_ITS | Encounter Summary ---
Author Organization [employer] Address [address] [facility] [facility] [address] [place] [address] Care Team Providers Care Receptionist Airline Lounge Name Role Phone Lita Graham Primary Care Provider [phone] Reason for Visit * Reason Comments Weight Check Encounter Details Date Type Department Care Team (Latest Contact Info) Description 01/23/2025 3:30 PM EDT Clinical Support [facility] MEDICINE [address] [place], [place] [phone] Naheed Cuenca RN Obesity, Class III, BMI 40-49.9 (morbid obesity) Social History Tobacco Use Types Packs/Day Years [...] Sign Reading Time Taken Comments Blood Pressure - - Pulse - - Temperature - - Respiratory Rate - - Oxygen Saturation - - Inhaled Oxygen Concentration - - Weight 120 kg (264 lb) 01/23/2025 3:25 PM EDT Height 160 cm (5' 3 ) 01/23/2025 3:25 PM EDT Body Mass Index 46.77 01/23/2025 3:25 PM EDT documented in this encounter Progress Notes * Naheed Cuenca RN - 01/23/2025 3:30 PM EDT S: Pt is pleasant 34 year old male who presents for weight check. Pt currently on Zepbound 5mg, plan per PCP Lita Graham ROLL UP HELPER is to increase to Zepbound 7.5mg. Pt has 1 injection left, will take on Thursday01/29/25. No refills on file. Last weights on file: 01/09/25: 263 lbs 11/10/24: 287.0 lbs O: Pt's weight in clinic today 264.0 lbs. A/P: Advised pt will send note from visit today to PCP. Informed him that once PA paperwork completed, insurance has 28 days to respond to PA, advised him to contact insurance company directly for status check. Pt asking if PCP will send another 5mg refill to hold him til PA is decided on, advised him will message PCP. documented in this encounter Plan of Treatment Upcoming Encounters Date Type Department Care Team ([facility] st Contact Info) Description 02/13/2025 3:00 PM EDT Office Visit [facility] MEDICINE [address] [place] [address] Lita Graham ANP [address] [place] [address] documented as of this encounter Visit Diagnoses Diagnosis Obesity, Class III, BMI 40-49.9 (morbid obesity) documented in this encounter Additional Health Concerns Assessment Noted Time PHQ-9 Depression Total Score: 4 06/15/19 25 4:08 PM EST documented as of this encounter Care Teams Receptionist Airline Lounge Relationship Specialty Start Date End Date Lita Graham ANP [address] [place] [id number] PCP - General Family Medicine 06/27/21 documented as of this encounter
--- NOTE | 2025-01-24 15:04 | A.OFFVIS_ITS ---
Vital Signs 01/24/25 15:05 Weight 250 lb BP 120/76 Blood Pressure Location Rt brachial Position Sitting Pulse 81 Pulse Source Pulse Oximeter Pulse Oximetry (%) 96 Oxygen Delivery Method Room Air Intake Visit Reasons: Follow up Video Game Maker Required: No Accompanied by: Self / Same As Patient Allergies No Known Allergies Allergy (Verified 01/24/25 15:04) HPI Comments Details: 34-yr-old male presents for follow-up visit of sleep apnea. Pt denies any significant interval medical history changes. The patient reports he is overall sleeping well with his CPAP therapy. He occasionally will have some daytime sleepiness, if he is not able to sleep enough hours at night. He may have reduced sleep hours due to his work or [facility] h schedule. He states he has enough CPAP supplies He states he washes his CPAP supplies regularly. He uses regular tap water in his CPAP machine and has not had any issues with his machine, which is 7 years old. Compliance Report 10/26/2024 - 01/23/2025 Respiratory company: [facility] Usage days 90/90 days (100%) Usage >= 4 hours 84 days (93%) Usage < 4 hours 6 days (7%) Average usage (days used) 5 hours 44 minutes AirSense 10 AutoSet Serial number [id number] Mode AutoSet APAP 6-16 cm H2O with EPR 3 Pressure - cmH2O Median: 10.6 95th percentile: 13.5 Maximum: 14.7 Leaks - L/min Median: 0.2 95th percentile: 19.4 Maximum: 64.5 Residual events per hour AI: 1.2 HI: 0.5 AHI: 1.7 PFSH Medical History (Updated 01/25/25 @ 07:33 by QUANG Magana) Sleep apnea Hyperlipidemia Surgical History History of carpal tunnel release No pertinent past surgical history Family History Father Stroke Myocardial infarction Hemiplegia Mother Arthritis Son In good health Son In good health Sister In good health Family/Other Diabetes Social History Alcohol intake: never Patient Tobacco Use Status: Never used Tobacco Current occupational status: employed 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 Physical Exam Vital Signs: Last Vital Signs Pulse 81 01/24/25 15:05 BP 120/76 01/24/25 15:05 Pulse Ox 96 01/24/25 15:05 Oxygen Delivery Method Room Air 01/24/25 15:05 Const General: no acute distress Orientation/consciousness: patient oriented x3 Resp Effort & Inspection: normal respiratory effort and able to speak in complete sentences Neuro General: patient oriented x3 Psych Mental Status: mental status grossly normal Speech and movement: Clear speech present Attitude: cooperative Assessment & Plan Assessment & Plan (1) FABIÁN on CPAP: Comment: 2017 baseline HST: AHI 150 per hour Code(s): G47.33 - Obstructive sleep apnea (adult) (pediatric) Category: Medical Plan For FABIÁN: * Continue APAP 6-16 cmH2O w/ EPR 3 nightly > 4 hours, as pt continues to have good clinical effect from use. * Clean CPAP machine and supplies routinely. * Change CPAP supplies routinely. * Use distilled water in CPAP water reservoir. * Updated CPAP supply order written today * Pt to contact us or respiratory company with any questions or concerns. * Encouraged to aim to sleep at least 7-9 hours per night to reduce daytime sleepiness symptoms. * Future considerations: Weight loss may reduce FABIÁN severity Pt to follow-up in 12 months or sooner prn. Coding Level of Care Code Est Pt Level 3 (62744) Diagnoses FABIÁN on CPAP G47.33
[2025-01-24 15:05] VITALS: BP 120/76; PULSE 81; O2SAT 96
--- OUTSIDE RECORDS SUMMARY | 2025-01-24 17:23 | XMS_ITS | Encounter Summary ---
Author Organization [employer] Address [address] [facility] [address] [place] [address] Care Team Providers Care Obstetrician Gynecologist Name Role Phone Lita Graham Primary Care Provider [phone] Reason for Visit * Reason Onset Date Comments Med Refill 08/24/2023 Encounter Details Date Type Department Care Team (Late st Contact Info) Description 08/24/2023 Refill [facility] MEDICINE [address] [place], [place] [phone] Lita Graham ANP [address] [place], [place] [phone] Social History Tobacco Use Types Packs/Day Years [...] Care Team (Late st Contact Info) Description 02/13/2025 3:00 PM EDT Office Visit [facility] MEDICINE [address] [place] [phone] Lita Graham ANP [address] [place] [phone] documented as of this encounter Visit Diagnoses Not on filedocumented in this encounter Care Teams Obstetrician Gynecologist Relationship Specialty Start Date End Date Lita Graham ANP [address] [place] [phone] PCP - General Family Medicine 06/27/21 documented as of this encounter
--- OUTSIDE RECORDS SUMMARY | 2025-01-24 17:23 | XMS_ITS | Encounter Summary ---
Author Organization [employer] Address [address] [place] [address] Care Team Providers Care Foreign Exchange Trader Name Role Phone Lita Graham Primary Care Provider Reason for Visit * Reason Onset Date Comments Med Refill 11/02/2024 Encounter Details Date Type Department Care Team (Late st Contact Info) Description 11/02/2024 Refill [facility] MEDICINE [address] [place], [place] [phone] Lita Graham ANP [address] [place], [place] [phone] Generalized pruritus Social History Tobacco Use Types Packs/Day Years [...] Description 02/13/2025 3:00 PM EDT Office Visit [facility] MEDICINE [address] [place] [address] Lita Graham ANP [address] [place] [address] documented as of this encounter Visit Diagnoses Diagnosis Generalized pruritus Unspecified pruritic disorder documented in this encounter Additional Health Concerns Assessment Noted Time PHQ-9 Depression Total Score: 4 06/15/19 25 4:08 PM EST documented as of this encounter Care Teams Foreign Exchange Trader Relationship Specialty Start Date End Date Lita Graham ANP [address] [place] [phone] PCP - General Family Medicine 06/27/21 documented as of this encounter
--- OUTSIDE RECORDS SUMMARY | 2025-01-24 17:23 | XMS_ITS | Clinical Summary ---
Author Organization [employer] Address [address] [place] [address] Care Team Providers Care Dredge Captain Name Role Phone Lita Graham Primary Care Provider [phone] Allergies No known active allergies Medications hydrocortisone 2.5 % creamIndications :Pruritus of groin in male Apply to affected area up to twice daily as needed for itching 28 g 1 05/16/20 22 Active Additional Information Patient not taking.Reported on 05/12/2024 ibuprofen 400 MG tablet Take 1 tablet (400 mg) by mouth every 6 (six) hours if needed for moderate pain or fever for up to 30 doses. 30 tablet 02/05/20 23 Active fluticasone (Flonase Allergy Relief) 50 MCG/ACT nasal spray Administer 1 spray into each nostril Once per day. Shake gently. Before first use, prime pump. After use, clean tip and replace cap. 16 g 1 09/07/19 24 Active HYDROcodone-acet aminophen (Clyde) 5-325 MG tablet take 1 tablet by mouth every 4 to 6 hours as needed for pain 06/22/19 24 Active acetaminophen (Tylenol) 500 MG tablet Take 2 tablets (1,000 mg) by mouth every 6 (six) hours if needed for moderate pain or fever for up to 25 doses. 30 tablet 05/17/20 24 Active Alcohol Swabs 70 % padsIndications: Prediabetes Use to clean skin before fingerstick 100 each 11 06/15/19 25 Active albuterol (Ventolin HFA) 108 (90 Base) MCG/ACT inhalerIndicatio ns:Flu,Exacerbat ion of intermittent asthma, unspecified asthma severity Inhale 2 puffs by mouth every 4-6 hours as needed 18 g 1 06/18/19 25 Active cetirizine (ZyrTEC) 10 MG tabletIndication s:Generalized pruritus Take 1 tablet (10 mg) by mouth Once per day. 90 tablet 2 07/26/19 25 Active Blood Glucose Monitoring Suppl (FreeStyle [place] Lite) w/Device kitIndications:P rediabetes Use to test blood sugar a few times per week 1 kit 08/11/19 25 Active FREESTYLE LITE test stripIndications :Prediabetes Use to test blood sugar a few times per week and more as needed if symptomatic 100 each 12 08/11/19 25 026 Active Lancets miscIndications: Prediabetes Use to test blood sugar a few times per week and more as needed if symptomatic 100 each 3 08/11/19 25 Active atorvastatin (Lipitor) 20 MG tabletIndication s:Hypercholester olemia TAKE 1 TABLET BY MOUTH AT BEDTIME ONCE DAILY 90 tablet 1 10/19/19 25 Active Tirzepatide-Weig ht Management 5 MG/0.5ML solution auto-injectorInd ications:Class 3 severe obesity with serious comorbidity and body mass index (BMI) of 50.0 to 59.9 in adult, unspecified obesity type,Obstructive sleep apnea syndrome Inject 0.5 mL (5 mg) under the skin 1 (one) time per week. 2 mL 1 12/06/19 25 Active Nirmatrelvir&Rit onavir 300/100 (Paxlovid, 300/100,) 20 x 150 MG & 10 x 100MG tablet therapy packIndications: COVID-19 Take 3 tablets by mouth 2 times daily for 5 days. Take 2 tabs (300mg of nirmatrelvir) and 1 tab (100mg of ritonavir) PO BID for 5 days. No renal failure. Possible medication interactions reviewed. 30 each 01/10/20 25 025 Active Problems Problem Noted Date Diagnosed Date [...] nose drops to loosen mucus Take Acetaminophen (Tylenol )/Ibuprofen as needed to reduce fever, headache, body [...] Encounters Date Type Department Care Team Description 01/24/2025 Telephone [facility] [address] [place] [address] Lita Graham ANP Prior Authorization 01/23/2025 3:30 PM EDT Clinical Support [facility] [address] [place] [id number] Naheed Cuenca RN Obesity, Class III, BMI 40-49.9 (morbid obesity) 01/23/2025 Travel 01/23/2025 Refill [facility] [address] [place] [address] Lita Graham ANP Class 3 severe obesity with serious comorbidity and body mass index (BMI) of 50.0 to 59.9 in adult, unspecified obesity type; Obstructive sleep apnea syndrome 01/09/2025 5:00 PM EDT Office Visit [facility] [address] [place] [address] Mikie Nunez MD COVID-19 (Primary Dx) 01/09/2025 Travel 01/02/2025 Telephone [facility] [address] [place] [address] Lita Graham ANP Appointment Request 01/02/2025 Orders Only [facility] [address] [place] [address] Lita Graham ANP 12/01/2024 Refill [facility] [address] [place] [phone] Lita Graham ANP Class 3 severe obesity with serious comorbidity and body mass index (BMI) of 50.0 to 59.9 in adult, unspecified obesity type; Obstructive sleep apnea syndrome 11/10/2024 2:00 PM EDT Office Visit [facility] [address] [place] [address] Lita Graham ANP Class 3 severe obesity with serious comorbidity and body mass index (BMI) of 50.0 to 59.9 in adult, unspecified obesity type (Primary Dx); Obstructive sleep apnea syndrome; Acute pain of left shoulder 11/10/2024 Travel 11/09/2024 Telephone [facility] [address] [place] [address] Angeli Ramos MA Chart Prep 11/02/2024 Refill [facility] [address] [place] [address] Lita Graham ANP Generalized pruritus from Last 3 Months Immunizations Immunization Administration Dates Next Due Hep A, Adult [...] Sign Reading Time Taken Comments Blood Pressure 130/79 01/09/2025 4:48 PM EDT Pulse 81 01/09/2025 4:48 PM EDT Temperature 36.9 C (98.4 F) 01/09/2025 4:48 PM EDT Respiratory Rate 24 01/09/2025 4:48 PM EDT Oxygen Saturation 98% 01/09/2025 4:48 PM EDT Inhaled Oxygen Concentration - - Weight 120 kg (264 lb) 01/23/2025 3:25 PM EDT Height 160 cm (5' 3 ) 01/23/2025 3:25 PM EDT Body Mass Index 46.77 01/23/2025 3:25 PM EDT Plan of Treatment Upcoming Encounters Date Type Department Care Team (Late st Contact Info) Description 02/13/2025 3:00 PM EDT Office Visit [facility] [address] [place], [place] [phone] Lita Graham ANP [address] [place], [place] [phone] Health Maintenance Due Date Last Done Comments Family Planning (PISQ) 2004 HPV Vaccines (1 - Male 3-dose series) 2004 Pneumococcal Vaccine: Pediatrics (0 to 5 Years) and At-Risk Patients (6 to 49) Years (2 of 2 - PCV) 09/15/2019 09/14/2018 Dental Prophylaxis 11/11/2024 05/12/2024 Dental Oral Exam 11/21/2024 05/23/2024 COVID-19 Vaccine (3 - season) 2025 10/03/2022, 05/10/2021 Influenza Vaccine (#1) 2025 , 07/17/2017, 02/17/2016 Dental X-Ray: Bitewings 05/13/2025 05/12/2024 SDOH Screening 06/07/2025 06/07/2024 Alcohol/Substance Use Screening 06/15/2025 06/15/2024 Depression Screening 06/15/2025 06/15/2024, 06/15/19 25 Diabetes: Hemoglobin A1C 06/25/2025 025, 06/15/2024, 08/22/2023, Additional history exists Disability Screening 11/10/2025 11/10/2024 Tobacco Screening 11/10/2025 11/10/2024 Dental X-Ray: Full Mouth 05/13/2027 05/12/2024 Lipid Panel 06/25/2029 06/25/2024, 04/0 10/2023, 10/14/2022, Additional history exists DTaP/Tdap/Td Vaccines (4 - [...] patient's age to complete this topic Meningococcal B Vaccine Aged Out No l onger eligible based on patient's age to complete [...] Name Priority Date/Time Associated Diagnosis Comments POCT COVID-19 AG OCONNOR ID NOW Routine 01/09/2025 5:22 PM EDT COVID-19 POCT INFLUENZA B (ID NOW RAPID MOLECULAR) Routine 01/09/2025 5:21 PM EDT COVID-19 POC OCONNOR ID NOW STREP A Routine 01/09/2025 5:20 PM EDT COVID-19 POCT INFLUENZA A (ID NOW RAPID MOLECULAR) Routine 01/09/2025 5:20 PM EDT COVID-19 HEMOGLOBIN A1C Routine 06/25/2024 9:33 AM EST Prediabetes LIPID PANEL, STANDARD Routine 06/25/2024 9:33 AM EST Hypercholesterolem ia COMPREHENSIVE ORAL EVALUATION - NEW OR ESTABLISHED PATIENT Routine 05/23/2024 3:00 PM EST PROPHYLAXIS - ADULT Routine 05/12/2024 2 :00 PM EST INTRAORAL - COMPLETE SERIES OF RADIOGRAPHIC IMAGES Routine 05/12/2024 2:00 PM EST ZZZ HISTORICAL HEPATITIS C AB W/REFL TO HCV RNA, QN, PCR Routine 06/06/2021 3:36 PM EST HIV 1/2 ANTIGEN/ANTIBODY, FOURTH GENERATION W/RFL Routine 06/06/2021 3:36 PM EST from Last 3 Months or Most Recently Relevant to Health Maintenance Results * (ABNORMAL) POCT Rapid Covid-19 OCONNOR ID NOW (01/09/2025 5:22 PM EDT) [facility] Coronavirus Antigen PCR Positive (A) Negative, Indeterminate, None Detected, Invalid, Specimen unsatisfactory for evaluation, Weakly Positive, 2+ QC Media Lot # [id number] Lot# Expiration Date 82 Swab 01/09/2025 5:2 2 PM EDT Mikie Nunez MD POINT OF CARE TEST ENTER/EDIT OR DERABLES Final Result * POCT Rapid Influenza B OCONNOR ID NOW (01/09/2025 5:21 PM EDT) [facility] Influenza B Negative Negative, Indeterminate [facility] QC Media Lot # [id number] [facility] Lot# Expiration Date [facility] Swab 01/09/2025 5:21 PM EDT Mikie Nunez MD POINT OF CARE TEST ENTER/EDIT OR DERABLES Final Result [facility] [address] [place] [phone] * POCT Rapid Influenza A OOCNNOR ID NOW (01/09/2025 5:20 PM EDT) [facility] Influenza A Negative Negative, Indeterminate [facility] QC Media Lot # [id number] [facility] Lot# Expiration Date [facility] Swab 01/09/2025 5:20 PM EDT us Mikie Nunez MD POINT OF CARE TEST ENTER/EDIT OR DERABLES Final Result Performing Organization Address City/[facility]/ZIP Co de Phone Number [facility] [address] [place] [address] [phone] * POCT Rapid Strep A OCONNOR ID NOW (01/09/2025 5:20 PM EDT) Pathologist [facility] Rapid Strep A Screen Negative Negative, None Detected QC Media Lot # [id number] Lot# Expiration Date Swab 01/09/2025 5:20 PM EDT us Mikie Nunez MD POINT OF CARE TEST ENTER/EDIT OR DERABLES Final Result * (ABNORMAL) Hemoglobin A1c (06/25/2024 9:33 AM EST) Pathologist [facility] Hemoglobin A1c 6.2(H) <6.0 % [facility] Comment:Hemoglobin A1C Refer ence Range Adults: 4.8 - 6.0 % Non diabetic: < 6.0 % Goal: < 7.0 %Additional Action Suggested: > 8.0 %Note: Hemoglobin A1c results are invalid for patients with abnormal amounts of HbF. Blood transfusions may impact the HbA1c concentration in the patient sample. Estimated Average Glucose 131 mg/dL [facility] Comment:eAG = Estimated ave rage glucose which is %A1C expressed asaverage glucose, using the formula of the [id number] Glucose study (ADAG), Diabetes Care, Vol.31,#8,Dec. 2007 Blood Venous blood specimen / Unknown 06/25/2024 9:33 AM EST 06/25/2024 9:33 AM EST us Lita MACDONALD LAB BLOOD ORDERABLES Final Resul t Performing Organization Address [facility]/ZIP Co de Phone Number [facility] [address] [place] [address] [phone] * (ABNORMAL) Lipid Panel, Standard (06/25/2024 9:33 AM EST) Pathologist [facility] Triglycerides 85 <150 mg/dL [facility] Comment:Desirable Triglyceri de: less than 150 mg/dLBorderline High Triglyceride 150-199 mg/dLHigh Triglyceride: 200-499 mg/dLVery High Triglyceride: greater than or equal to 5OO mg/dL Cholesterol 134 <200 mg/dL [facility] Comment:Desirable Cholestero l: less than 200 mg/dLBorderline High Cholesterol: 200-239 mg/dLHigh Cholesterol: greater than 239 mg/dL LDL Cholesterol Calculated 88 <100 mg/dL [facility] Comment:Desirable LDL: less than 100 mg/dLNear Optimal/Above Optimal LDL: 110- 129 mg/dLBorderline High LDL: 130-159 mg/dLHigh LDL: 160-189 mg/dLVery High LDL: greater than or equal to 190 mg/dL HDL Cholesterol 29(L) >40 mg/dL [facility] Comment:Desirable HDL: great er than 40 mg/dL Note: This HDL assay may give artificially low results in patients with liver disease. Blood Venous blood specimen / Unknown 06/25/2024 9:33 AM EST 06/25/2024 9:33 AM EST [facility] LAB BLOOD ORDERABLES Final Resul t [facility] [address] [place] [phone] * HEPATITIS C AB W/REFL TO HCV RNA, QN, PCR (06/06/2021 3:36 PM EST) HEPATITIS C ANTIBODY NON-REACT [facility] NON-REACT [facility] INDEX 0.04 <1.00 [facility] Comment: HCV antibody was non-reactive. There is no laboratory evidence of HCV infection. In most cases, no further action is required. However, if recent HCV exposure is suspected, a test for HCV RNA (test code 67133) is suggested. For additional information please refer to http://education.[employer]/faq/WVI67e3 (This link is being provided for informational/ educational purposes only.) 06/06/2021 3:36 PM EST Joel Mcmahan MD HISTORICAL/NON ORDERABLE LABS Fi nal Result Performing Organization Address [facility] de Phone Number [facility] [address] * HIV 1/2 ANTIGEN/ANTIBODY,FOURTH GENERATION W/RFL (06/06/2021 3:36 PM EST) HIV-1/2 ANTIGEN AND ANTIBODIES, 4TH GENERATION W/ REFLEX NON-REACT [facility] NON-REACT A[facility] Comment: HIV-1 antigen and HIV-1/HIV-2 antibodies were not detected. There is no laboratory evidence of HIV infection. PLEASE NOTE: This information has been disclosed to you from records whose confidentiality may be protected by state law. If your state requires such protection, then the state law prohibits you from making any further disclosure of the information without the specific written consent of the person to whom it pertains, or as otherwise permitted by law. A general authorization for the release of medical or other information is NOT sufficient for this purpose. For additional information please refer to http://education.[employer]/faq/DIE675 (This link is being provided for informational/ educational purposes only.) The performance of this assay has not been clinically validated in patients less than 2 years old. 06/06/2021 3:36 PM EST Joel Mcmahan MD LAB BLOOD ORDERABLES Final Resul t Performing Organization Address [facility] Phone Number [facility] [address] from Last 3 Months or Most Recently Relevant to Health Maintenance Insurance [facility] [employer] [facility] D[facility] - HSN PARTIAL (MEDICAID) Care Teams Dredge Captain Relationship Specialty Start Date End Date Lita Graham ANP [address] [place] [phone] PCP - General Family Medicine 06/27/21
--- OUTSIDE RECORDS SUMMARY | 2025-01-24 17:23 | XMS_ITS | Encounter Summary ---
Author Organization [employer] Address [address] [place] [address] Care Team Providers Care Clothes Drier Repairer Name Role Phone Lita Graham Primary Care Provider [phone] Reason for Visit * Reason Onset Date Comments Prior Authorization 01/24/2025 Encounter Details Date Type Department Care Team (Late st Contact Info) Description 01/24/2025 Telephone [facility] [address] [place], [place] [phone] Lita Graham ANP [address] [place], [place] [phone] Prior Authorization Social History Tobacco Use Types Packs/Day Years [...] encounter Miscellaneous Notes * Telephone Encounter - Li Bergeron - 01/24/2025 3:52 PM EDT Per insurance: An active PA is already on file with expiration date of 04/16/2025 for 5mg Zepbound.Awning Craftsman called [facility] pharmacy who stated no PA needed at this point; pt picked up 28day supply of 5mg Zepbound on 01/04/2025. Pharmacy needs new rx if continuing on 5mg as no refills remaining. If increasing dose to 7.5mg, please send rx as that will generate a pharmacy claim to start the PA process. Thank you * Telephone Encounter - Li Bergeron - 01/24/2025 3:48 PM EDT ----- Message from Nurse Naheed Sheffield sent at 01/23/2025 3:39 PM EDT ----- Weight documented during RN visit today for PA process for Zepbound 7.5mg. Pt has 1 injection left of 5mg, no refills on file, plans to take 01/29/25. Please advise if 1 refill on 5mg will be sent or pt to wait for appeal/denial for 7.5mg. Thank you! documented in this encounter Plan of Treatment Upcoming Encounters Date Type Department Care Team (Late st Contact Info) Description 02/13/2025 3:00 PM EDT Office Visit [facility] [address] [place] [address] Lita Graham ANP [address] [place] [address] documented as of this encounter Visit Diagnoses Not on filedocumented in this encounter Additional Health Concerns Assessment Noted Time PHQ-9 Depression Total Score: 4 06/15/19 25 4:08 PM EST documented as of this encounter Care Teams Clothes Drier Repairer Relationship Specialty Start Date End Date Lita Graham ANP [address] [place] [phone] PCP - General Family Medicine 06/27/21 documented as of this encounter
--- OUTSIDE RECORDS SUMMARY | 2025-01-24 17:23 | XMS_ITS | Encounter Summary ---
Author Organization [employer] Address [address] [place] [address] Care Team Providers Care Diamond Blender Name Role Phone Lita Graham Primary Care Provider [phone] Reason for Visit * Reason Comments Med Refill Encounter Details Date Type Department Care Team (Late st Contact Info) Description 01/23/2025 Refill [facility] [address] [place], [place] [phone] Lita Graham ANP [address] [place], [place] [phone] Class 3 severe obesity with serious comorbidity and body mass index (BMI) of 50.0 to 59.9 in adult, unspecified obesity type; Obstructive sleep apnea syndrome Social History Tobacco Use Types Packs/Day Years [...] Description 02/13/2025 3:00 PM EDT Office Visit [facility] [address] [place] [phone] Lita Graham ANP [address] [place] [address] documented as of this encounter Visit Diagnoses Diagnosis Class 3 severe obesity with serious comorbidity and body mass index (BMI) of 50.0 to 59.9 in adult, unspecified obesity type Obstructive sleep apnea syndrome Obstructive sleep apnea (adult) (pediatric) documented in this encounter Additional Health Concerns Assessment Noted Time PHQ-9 Depression Total Score: 4 06/15/19 25 4:08 PM EST documented as of this encounter Care Teams Diamond Blender Relationship Specialty Start Date End Date Lita Graham ANP [address] [place] [phone] PCP - General Family Medicine 06/27/21 documented as of this encounter
--- OUTSIDE RECORDS SUMMARY | 2025-01-24 17:23 | XMS_ITS | Encounter Summary ---
Author Organization [employer] Address [address] [place] [address] Care Team Providers Care Apparel Pattern Maker Name Role Phone Lita Graham Primary Care Provider [phone] Encounter Details Date Type Department Care Team (Latest Contact Info) Description 01/23/2025 Travel Social History Tobacco Use Types Packs/Day [...] Description 02/13/2025 3:00 PM EDT Office Visit [facility] [address] [place] [phone] Lita Graham ANP [address] [place] [address] documented as of this encounter Visit Diagnoses Not on filedocumented in this encounter Additional Health Concerns Assessment Noted Time PHQ-9 Depression Total Score: 4 06/15/19 25 4:08 PM EST documented as of this encounter Care Teams Apparel Pattern Maker Relationship Specialty Start Date End Date Lita Graham ANP [address] [place] [phone] PCP - General Family Medicine 06/27/21 documented as of this encounter
== END 2025-01-24 15:46 | disposition home or self-care (01) ==
LOC: HO.HSMS 14:55
PROVIDERS: PCP Nurse Practitioner Primary Care; Visit Provider Nurse Practitioner Family
DX: G47.33 Obstructive sleep apnea (adult) (pediatric) (principal)
CPT/HCPCS: 99213

== ENCOUNTER → 2025-01-24 14:54 | Outpatient (BNVA) | payer OTHER, SELFPAY | PROVIDERS: PCP Nurse Practitioner Primary Care; Visit Provider Nurse Practitioner Family | DX: G47.33 Obstructive sleep apnea (adult) (pediatric) (principal); E78.5 Hyperlipidemia, unspecified | CPT/HCPCS: 99212 ==